=== PATIENT | male | born 1945 | race Caucasian/White ===

== ENCOUNTER 2019-03-07 14:45 | Inpatient (IN) ==
--- OUTSIDE RECORDS SUMMARY | 2019-03-07 14:48 | External Medical Summary | Continuity of Care Document ---
:1945 Author Name Nery Rizvi, Provider Address Unavailable Unavailable , Care Team Providers Name Role Phone Rosanna Rizvi, [email or web address] Unavailable Unavailable Unavailable Unavailable Unavailable Problems Diabetes (250.00) (E11.9) CHF (congestive heart failure) (428.0) (I50.9) Obesity (278.00) (E66.9) Hypertension (401.9) (I10) A-fib (427.31) (I48.91) CAD (coronary artery disease) (414.00) (I25.10) Dyslipidemia (272.4) (E78.5) Fatigue (780.79) (R53.83) Ischemic cardiomyopathy (414.8) (I25.5) Sleep apnea (780.57) (G47.30) Current every day smoker (305.1) (F17.200) Encounter for monitoring anti-arrhythmic therapy (V58.83) (Z 51.81) Current use of prison anticoagulation (V58.61) (Z79.01) Allergies and Adverse Reactions No Known Allergies (Allergy) Medications Atenolol 25 MG Oral Tablet; take 1/2 tablet by mouth once da pan Quantity: 90 Refills: 3 Aspirin 81 MG TABS; TAKE 1 TABLET DAILY. Refills: 0 Furosemide 40 MG Oral Tablet; TAKE 1 TABLET TWICE DAILY. Quantity: 30 Refills: 0 Ramipril 5 MG Oral Capsule; Take 1 capsule twice daily Refills: 0 Xarelto 20 MG Oral Tablet; TAKE 1 TABLET BY MOUTH DAILY Quantity: 30 Refills: 11 Sotalol HCl - 160 MG Oral Tablet; TAKE 1 TABLET TWICE DAILY. Refills: 0 Spironolactone 25 MG Oral Tablet; TAKE 1 TABLET BY MOUTH ONC E DAILY. Quantity: 30 Refills: 3 glipiZIDE 10 MG Oral Tablet; TAKE 1 TABLET TWICE DAILY. Refills: 0 Cinnamon 500 MG Oral Tablet; Take 2 tablets daily Refills: 0 Atorvastatin Calcium 40 MG Oral Tablet; TAKE 1 TABLET DAILY AT BEDTIME 90 Tablet Bottle Refills: 0 Acarbose 50 MG Oral Tablet; TAKE 1 TABLET 3 TIMES DAILY WITH MEALS. Refills: 0 Procedures Procedures not documented Immunizations Immunizations not documented Social History - Smoking Status Current every day smoker Plan of Treatment Planned Encounters Appointment; Gm Marte M.D. Start: 07-Aug-2019 11:15 Req uest Planned Observations Planned Goals not documented Results In-House EKG ([facility]) Total Laboratory: [facility] Component (Pending) 06-Feb-2019 9:40 In-House EKG Total Component [facility] Test Date: [id number] Name: ARMANDO FINK Detment: Room: Gender: Male [employer]s Receivable Specialist: KDunlapDOB: 1945 Requested By: Yesenia MarteOrder Number: [id number] Reading MD: Gm Marte MeasurementsIntervals [place] Rate: 56 P: -25PR: 178 QRS: 14QRSD: 86 T: 30QT: 427 QTc: 417 Interpretive StatementsSINUS BRADYCARDIA WITH SINUS ARRHYTHMIA versus premature ectopi c atrialbeatsLOW QRS VOLTAGE IN PRECORDIAL LEADS BORDERLINE ECGReviewed by Comed to ECG 08/06/2018 10:47:03Electronically Signed On 02-08-20 17:59:01 EDT by Gm Marte Vital Signs 07-Mar-2019 13:56 Systolic 108 mm[Hg] Comments: Location: RUE; Position: Sitting Diastolic 70 mm[Hg] Comments: Location: RUE; Position: Sitting BMI Calculated 35.78 kg/m2 Weight 271.1875 lb Heart Rate 60 /min Comments: Location: R Radial; BSA Calculated 2.45 m2 06-Feb-2019 9:29 Systolic 104 mm[Hg] Comments: Location: LUE; Position: Sitting Diastolic 64 mm[Hg] Comments: Location: LUE; Position: Sitting BMI Calculated 36.06 kg/m2 Weight 273.3125 lb Heart Rate 60 /min Comments: Location: L Radial; BSA Calculated 2.46 m2 Height 73 in Encounters Appointment; Nedra Cantrell PA-C 07-Mar-2019 14:00 Encounter Diagnosis: Problem not documented Appointment; Gm Marte M.D. 06-Feb-2019 9:45 Encounter Diagnosis: Problem not documented Appointment; Gm Marte M.D. 06-Aug-2018 10:15 Encounter Diagnosis: Problem not documented Appointment; Gm Marte M.D. 17-Jan-2018 10:30 Encounter Diagnosis: Problem not documented Appointment; Gm Marte M.D. 18-Jul-2017 9:30 Encounter Diagnosis: Problem not documented Appointment; Gm Marte M.D. 07-Aug-2019 11:15 Encounter Diagnosis: Problem not documented
[2019-03-07] MEDS ORDERED: MAGNESIUM SULFATE 1GM / D5W BAG IV ONE (15:06)
[2019-03-07] MEDS ORDERED: ALBUT/IPRATROP 3MG/0.5MG NEB 3 ML VIAL INH STA (15:11)
[2019-03-07] MEDS ORDERED: methylPREDNISolone 125 MG/2 ML VIAL IV STA (15:11)
[2019-03-07] MEDS: MAGNESIUM SULFATE / D5W 1 GM/100 ML BAG IV SCH ×2 (15:16→21:02)
[2019-03-07 15:32] LABS: Basophils # (auto) 0.03 K/uL (0-0.2); Basophils % (auto) 0.3 %; Eosinophils # (auto) 0.15 K/uL (0-0.5); Eosinophils % (auto) 1.4 %; Hematocrit (blood only) 56.7 % (42-52); Immature Granulocytes # (auto) 0.04 K/uL (0.00-0.02); Immature Granulocytes % (auto) 0.4 %; Lymphocytes # (auto) 1.21 K/uL (1.2-3.4); Mean Corpuscular Volume 97.3 fL (80-100); Mean Platelet Volume 11.5 fL (7.4-10.4); Monocytes # (auto) 1.72 K/uL (0.11-0.59); Monocytes % (auto) 15.6 %; Neutrophils # (auto) 7.89 K/uL (1.4-6.5); Neutrophils % (auto) 71.3 %; Platelet Count 182 K/uL (130-400); RDW Coefficient of Variation 14.9 % (11.5-14.5); RDW Standard Deviation 52.5 fL (36.4-46.3); Red Blood Count 5.83 M/uL (4.7-6.1); White Blood Count 11.04 K/uL (4.8-10.8)
--- NOTE | 2019-03-07 15:38 | XRay Report ---
XR chest 1V portable CLINICAL HISTORY: Dyspnea COMPARISON STUDY: No previous studies for comparison. FINDINGS: Lung volumes are normal. There is no pneumothorax or pleural effusion. Mild lower lung inte rstitial thickening is noted. No consolidation to suggest pneumonia. Mild cardiomegaly is noted. There is prominence of right media stinal contour. IMPRESSION: 1. Prominent right mediastinal contour, a nonspecific finding. A CT of the chest with contrast is rec ommended. 2. Lower lung interstitial thickening. No consolidation to suggest pneumonia. Electronically signed by: Marcus Ceballos M.D. 03/07/2019 3:37 PM
[2019-03-07 15:39] LABS: Albumin Level 3.5 gm/dl (3.4-5.0); Creatinine Clr Calc Pharmacy 57.4 ml/min; Est GFR (African American) 48.8; Est GFR (Non-African American) 42.1; Magnesium 2.5 mg/dl (1.8-2.4); Potassium 4.7 mmol/L (3.5-5.1)
[2019-03-07 15:44] LABS: Mean Corpuscular Hgb Conc 31.7 g/dL (32-36)
[2019-03-07 15:53] LABS: Oxygen Saturation VBG 85.1 %; pH VBG 7.25 (7.36-7.41)
[2019-03-07 15:57] LABS: Albumin Globulin Ratio 0.9 (0.9-2); Bilirubin,Total 0.9 mg/dl (0.2-1); Globulin 3.9 gm/dl (2.5-4.0); Total Protein 7.4 gm/dl (6.4-8.2); Troponin I 0.594 ng/ml (0-0.045)
[2019-03-07] MEDS ORDERED: ASPIRIN CHEW 324 MG PO STA (16:06)
--- NOTE | 2019-03-07 16:48 | Emergency Department Note ---
Entered by Prasanna Coley acting as a scribe for Vipin Gallardo MD History of Present Illness General Chief complaint: Shortness of Breath/Dyspnea Stated complaint: SHORTNESS OF BREATH Time Seen by Provider: 03/07/19 14:56 Source: patient History of Present Illness Onset (ago): month(s) 1 Location: chest (lungs) Pain Consistency: + other (persistent) Quality: + other (shortness of breath) Exacerbated By: + other (exertion) Associated symptoms: + cough and + other (leg swelling) The patient is a 73 year old white male with PMHx of COPD, A-fib on Sotalol and Xarelto, DM, HTN and HLD who presents to the Emergency Room with complaints of persistent shortness of breath for the past month worsening today. The patient reports that he sometimes becomes more short of breath with exertion. He reports a cough productive of clear/white sputum. He notes new leg swelling developing in the past few days, but he denies any calf pain or history of blood clots. He states that at home he does not use supplemental oxygen, CPAP, or BiPAP. He reports that he smokes cigarettes daily. He denies recent travel, recent antibiotic use, or history of cardiac stent placement. He notes that he sleeps lying flat on his side. Home Medications Home Medications Medication Instructions Recorded Confirmed Type acarbose 50 mg PO TID 03/07/19 03/07/19 History aspirin [Aspirin Low Dose] 81 mg PO DAILY 03/07/19 03/07/19 History atenolol 12.5 mg PO DAILY 03/07/19 03/07/19 History atorvastatin 40 mg PO HS 03/07/19 03/07/19 History cinnamon bark [Cinnamon] 1,000 mg PO DAILY 03/07/19 03/07/19 History furosemide 40 mg PO BID 03/07/19 03/07/19 History glipizide 10 mg PO BID 03/07/19 03/07/19 History ramipril 50 mg PO BID 03/07/19 03/07/19 History rivaroxaban [Xarelto] 20 mg PO DAILY 03/07/19 03/07/19 History sotalol 160 mg PO BID 03/07/19 03/07/19 History spironolactone 25 mg PO DAILY 03/07/19 03/07/19 History Allergies Allergy/AdvReac Type Severity Reaction Status Date / Time No Known Allergies Allergy Unverified 03/07/19 17:00 Past Med/Surg History Medical History HLD (hyperlipidemia) (Chronic) Hypertension (Chronic) Diabetes (Chronic) Atrial fibrillation (Chronic) COPD (chronic obstructive pulmonary disease) (Chronic) Family History Other Family history non-contributory Social History Preferred Language: Belgian Communication Ability: Effective Beliefs That Will Affect Care: None Current Living Situation: Spouse Feels Safe at Home: Yes Smoking Status: Heavy tobacco smoker Tobacco Type: cigarettes Second Hand Exposure: No Hx Alcohol Use: No Hx Substance Use: No Review of Systems See HPI for pertinent positives & negatives. and A total of 10 systems reviewed and were otherwise negative Physical Exam Vital Signs Vital Signs - 24 hr 03/07/19 14:46 03/07/19 14:57 03/07/19 15:01 Temperature 36.8 C Temperature Source Oral Sepsis Recent Fever Within 48 Hours No Sepsis Action Taken by Nursing No Action Required End-Tidal CO2 41 Pulse Rate 74 71 Pulse Rate from SpO2 Sensor 68 Pulse Rhythm Regular Pulse Strength Normal Respiratory Rate 30 H Respiratory Effort / Characteristics Non-Labored Spontaneous Accessory Muscle Use Respiratory Depth Normal Blood Pressure 124/66 135/85 Blood Pressure Mean 85 101 Blood Pressure Position Sitting Pulse Oximetry 66 L 87 L Oxygen Delivery Method Room Air Oxymask Oxymask Oxygen Flow Rate 13 2 Fraction of Inspired Oxygen 03/07/19 15:15 03/07/19 15:30 03/07/19 15:39 Temperature Temperature Source Sepsis Recent Fever Within 48 Hours Sepsis Action Taken by Nursing End-Tidal CO2 39 42 54 Pulse Rate 70 70 70 Pulse Rate from SpO2 Sensor 70 65 69 Pulse Rhythm Pulse Strength Respiratory Rate Respiratory Effort / Characteristics Respiratory Depth Blood Pressure 128/71 Blood Pressure Mean 90 Blood Pressure Position Pulse Oximetry 90 94 94 Oxygen Delivery Method Nebulizer Nebulizer Nebulizer Oxygen Flow Rate Fraction of Inspired Oxygen 03/07/19 15:42 03/07/19 16:01 03/07/19 16:30 Temperature Temperature Source Sepsis Recent Fever Within 48 Hours Sepsis Action Taken by Nursing End-Tidal CO2 41 40 Pulse Rate 66 70 Pulse Rate from SpO2 Sensor 61 59 L Pulse Rhythm Pulse Strength Respiratory Rate Respiratory Effort / Characteristics Respiratory Depth Blood Pressure 130/61 Blood Pressure Mean 84 Blood Pressure Position Pulse Oximetry 94 93 Oxygen Delivery Method Nasal Cannula Nebulizer Oxymask Oxygen Flow Rate 2 6 Fraction of Inspired Oxygen 87 03/07/19 16:31 03/07/19 17:29 03/07/19 17:31 Temperature Temperature Source Sepsis Recent Fever Within 48 Hours Sepsis Action Taken by Nursing End-Tidal CO2 43 49 37 Pulse Rate 65 63 66 Pulse Rate from SpO2 Sensor 64 63 65 Pulse Rhythm Pulse Strength Respiratory Rate Respiratory Effort / Characteristics Respiratory Depth Blood Pressure 132/70 102/55 L 82/67 L Blood Pressure Mean 90 70 72 Blood Pressure Position Pulse Oximetry 94 93 91 Oxygen Delivery Method Oxymask Oxymask Oxymask Oxygen Flow Rate 6 6 6 Fraction of Inspired Oxygen GENERAL: Well nourished, in mild distress, non-toxic. EYE EXAM: Normal conjunctiva. PERRL, no anisocoria and EOM's grossly intact w/o pain. OROPHARYNX: Moist mucous membranes. Grossly normal dentition. NECK: Supple, no nuchal rigidity, no adenopathy, non-tender. No signs of meningismus. LUNGS: Decreased breath sounds bilaterally with scant wheezing throughout. Normal chest wall mechanics. HEART: NSR, no MRG. ABDOMEN: Abdomen soft, non-tender, normo-active bowel sounds, no masses, no rebound or guarding. BACK: No CVA TTP. SKIN: No rashes and no bruising. UPPER EXTREMITIES: Upper extremities are grossly normal. LOWER EXTREMITIES: 2 to 3+ bilateral edema, right greater than left. No calf pa in. NEURO EXAM: A&O x3, cranial nerves II-XII grossly intact, normal speech, moves all 4 extremities on command w/o issue. Course 1457: The patient was evaluated in room B1. A complete history and physical examination were performed. Bedside ultrasound was performed and interpreted by me. Apical and parasternal views were difficult. Subxiphoid view showed no evidence of effusion. RV does not appear enlarged compared to the left. No obvious septal bowing. 1617: The patient is refusing BiPAP. After discussing risks and benefits with him, he stated that he still does not want BiPAP. He also does not want to be intubated or have CPR. 1625: Dr. Grace [facility] Hospitalist was notified of the patient. The patient will be reevaluated for hospitalization. 1710: I discussed the patient again with Dr. Grace. Administered Medications Albuterol (Duoneb) 3 ml NEB QIDR JABARI Stop: 04/06/19 19:59 Last Admin: 03/08/19 11:22 Dose: 3 ml Documented by: [id number] Admin: 03/08/19 07:02 Dose: 3 ml Documented by: [id number] Admin: 03/07/19 19:34 Dose: 3 ml Documented by: [id number] Aspirin (Ecotrin Ectab) 81 mg PO DAILY JABARI Stop: 04/07/19 08:59 Last Admin: 03/08/19 08:29 Dose: 81 mg Documented by: [id number] Atenolol (Tenormin) 12.5 mg PO DAILY JABARI Stop: 04/07/19 08:59 Last Admin: 03/08/19 08:30 Dose: 12.5 mg Documented by: [id number] Atorvastatin Calcium (Lipitor) 40 mg PO HS JABARI Stop: 04/06/19 20:59 Last Admin: 03/07/19 21:01 Dose: Not Given Documented by: [id number] Furosemide (Lasix) 40 mg PO BID17 JABARI Stop: 04/07/19 10:29 Last Admin: 03/08/19 11:32 Dose: 40 mg Documented by: [id number] Methylprednisolone 60 mg/ (Syringe) 0.96 mls @ 1.5 mls/min IV Q6H JABARI Stop: 04/06/19 18:59 Last Admin: 03/08/19 08:27 Dose: 1.5 mls/min Documented by: [id number] Admin: 03/08/19 00:48 Dose: 1.5 mls/min Documented by: [id number] Admin: 03/07/19 19:59 Dose: 1.5 mls/min Documented by: [id number] Insulin Aspart (Novolog Flexpen) 0 units SC ACHS JABARI Stop: 04/07/19 07:29 Last Admin: 03/08/19 08:33 Dose: 7 units Documented by: [id number] Cosigned by: [id number] Rivaroxaban (Xarelto) 20 mg PO DAILY JABARI Stop: 04/07/19 08:59 Last Admin: 03/08/19 08:31 Dose: 20 mg Documented by: [id number] Sotalol HCl (Betapace) 160 mg PO BID JABARI Stop: 04/06/19 20:59 Last Admin: 03/08/19 08:29 Dose: 160 mg Documented by: [id number] Admin: 03/07/19 21:01 Dose: Not Given Documented by: [id number] Discontinued Medications Albuterol (Duoneb) 12 ml INH ONE STA Stop: 03/07/19 15:12 Last Admin: 03/07/19 17:33 Dose: Not Given Documented by: [id number] Aspirin (Aspirin) 324 mg PO NOW STA Stop: 03/07/19 16:07 Last Admin: 03/07/19 17:33 Dose: 324 mg Documented by: [id number] Magnesium Sulfate/Dextrose (Magnesium Sulfate / D5w) 1 gm in 100 mls @ 100 mls/hr IV Q1H JABARI Stop: 03/07/19 17:14 Last Admin: 03/07/19 21:02 Dose: Not Given Documented by: [id number] Admin: 03/07/19 15:16 Dose: Not Given Documented by: [id number] Sodium Chloride (Nss 1000ml) 250 mls @ 999 mls/hr IV .Q16M ONE Stop: 03/07/19 18:00 Last Infusion: 03/07/19 18:12 Dose: 0 mls/hr Documented by: [id number] Admin: 03/07/19 17:47 Dose: 999 mls/hr Documented by: [id number] Sodium Chloride (Nss 1000ml) 250 mls @ 999 mls/hr IV .Q16M ONE Stop: 03/07/19 18:05 Last Admin: 03/07/19 18:01 Dose: Not Given Documented by: [id number] Sodium Chloride (Nss 1000ml) 1,000 mls @ 80 mls/hr IV .[id number] JABARI Stop: 04/06/19 18:14 Last Admin: 03/07/19 20:00 Dose: 80 mls/hr Documented by: [id number] Azithromycin 500 mg/ Dextrose 255 mls @ 125 mls/hr IV Q24H JABARI Stop: 03/14/19 19:59 Last Infusion: 03/07/19 23:15 Dose: 0 mls/hr Documented by: [id number] Admin: 03/07/19 19:59 Dose: 125 mls/hr Documented by: [id number] Ioversol (Optiray 320 125ml) 83 ml IV ONCE PRN PRN Reason: Interaction Checking Stop: 03/11/19 17:19 Last Admin: 03/07/19 17:20 Dose: 83 ml Documented by: [id number] Magnesium Sulfate/Dextrose (Magnesium Sulfate / D5w) Confirm Administered Dose 2 gm IV .STK-MED ONE Stop: 03/07/19 15:07 Last Admin: 03/07/19 15:08 Dose: 2 gm Documented by: [id number] Methylprednisolone (Solumedrol) 125 mg IV NOW STA Stop: 03/07/19 15:12 Last Admin: 03/07/19 15:34 Dose: 125 mg Documented by: [id number] Perflutren Lipid Microsphere (Definity) 2 ml IV ONCE ONE Stop: 03/08/19 07:11 Last Admin: 03/08/19 07:11 Dose: 2 ml Documented by: [id number] Medical Decision Making Medical Records Attestation: I reviewed the patient's medical records. Home Medications Current Medication List: was personally reviewed by me Laboratory Data Attestation: I reviewed the patient's lab results. Result diagrams: 03/08/19 06:25 03/08/19 06:25 Lab Results 03/07/19 03/07/19 03/07/19 Range/Units 14:55 14:55 14:55 WBC 11.04 H (4.8-10.8) K/uL RBC 5.83 (4.7-6.1) M/uL Hgb 18.0 (14.0-18.0) g/dL Hct 56.7 H (42-52) % MCV 97.3 (80-100) fL MCH 30.9 (25-34) pg MCHC 31.7 L (32-36) g/dL RDW Std Deviation 52.5 H (36.4-46.3) fL RDW Coeff of Conrad 14.9 H (11.5-14.5) % Plt Count 182 (130-400) K/uL MPV 11.5 H (7.4-10.4) fL Immature Gran % (Auto) 0.4 % Neut % (Auto) 71.3 % Lymph % (Auto) 11.0 % Toombs % (Auto) 15.6 % Eos % (Auto) 1.4 % Baso % (Auto) 0.3 % Immature Gran # (Auto) 0.04 H (0.00-0.02) K/uL Neut # (Auto) 7.89 H (1.4-6.5) K/uL Lymph # (Auto) 1.21 (1.2-3.4) K/uL Toombs # (Auto) 1.72 H (0.11-0.59) K/uL Eos # (Auto) 0.15 (0-0.5) K/uL Baso # (Auto) 0.03 (0-0.2) K/uL PT Cancelled INR Cancelled APTT Cancelled PTT Ratio Cancelled VBG pH (7.36-7.41) VBG pCO2 (38-50) mmHg VBG pO2 mmHg VBG HCO3 mmol/L VBG O2 Saturation % VBG Base Excess mEq/L Barometric Pressure mm/Hg Sodium 135 L (136-145) mmol/L Potassium 4.7 (3.5-5.1) mmol/L Chloride 94 L (98-107) mmol/L Carbon Dioxide 36 H (21-32) mmol/L Anion Gap 5.0 (3-11) BUN 37 H (7-18) mg/dl Creatinine 1.62 H (0.6-1.4) mg/dl Est Cr Clr Drug Dosing 57.4 ml/min Est GFR ( Amer) 48.8 Est GFR (Non-Af Amer) 42.1 BUN/Creatinine Ratio 23.0 H (10-20) Glucose 140 H (70-99) mg/dl Calcium 9.0 (8.5-10.1) mg/dl Magnesium 2.5 H (1.8-2.4) mg/dl Total Bilirubin 0.9 (0.2-1) mg/dl AST 15 (15-37) U/L ALT 17 (12-78) U/L Alkaline Phosphatase 98 (45-117) U/L Troponin I 0.594 H* (0-0.045) ng/ml NT-Pro-B Natriuret Pep 2693 H (0-900) pg/ml Total Protein 7.4 (6.4-8.2) gm/dl Albumin 3.5 (3.4-5.0) gm/dl Globulin 3.9 (2.5-4.0) gm/dl Albumin/Globulin Ratio 0.9 (0.9-2) 03/07/19 03/07/19 Range/Units 15:30 16:26 WBC (4.8-10.8) K/uL RBC (4.7-6.1) M/uL Hgb (14.0-18.0) g/dL Hct (42-52) % MCV (80-100) fL MCH (25-34) pg MCHC (32-36) g/dL RDW Std Deviation (36.4-46.3) fL RDW Coeff of Conrad (11.5-14.5) % Plt Count (130-400) K/uL MPV (7.4-10.4) fL Immature Gran % (Auto) % Neut % (Auto) % Lymph % (Auto) % Toombs % (Auto) % Eos % (Auto) % Baso % (Auto) % Immature Gran # (Auto) (0.00-0.02) K/uL Neut # (Auto) (1.4-6.5) K/uL Lymph # (Auto) (1.2-3.4) K/uL Toombs # (Auto) (0.11-0.59) K/uL Eos # (Auto) (0-0.5) K/uL Baso # (Auto) (0-0.2) K/uL PT 10.9 INR 1.1 APTT 28.3 PTT Ratio 1.0 VBG pH 7.25 L (7.36-7.41) VBG pCO2 85 H (38-50) mmHg VBG pO2 52 mmHg VBG HCO3 36 mmol/L VBG O2 Saturation 85.1 % VBG Base Excess 5.0 mEq/L Barometric Pressure 735.6 mm/Hg Sodium (136-145) mmol/L Potassium (3.5-5.1) mmol/L Chloride (98-107) mmol/L Carbon Dioxide (21-32) mmol/L Anion Gap (3-11) BUN (7-18) mg/dl Creatinine (0.6-1.4) mg/dl Est Cr Clr Drug Dosing ml/min Est GFR ( Amer) Est GFR (Non-Af Amer) BUN/Creatinine Ratio (10-20) Glucose (70-99) mg/dl Calcium (8.5-10.1) mg/dl Magnesium (1.8-2.4) mg/dl Total Bilirubin (0.2-1) mg/dl AST (15-37) U/L ALT (12-78) U/L Alkaline Phosphatase (45-117) U/L Troponin I (0-0.045) ng/ml NT-Pro-B Natriuret Pep (0-900) pg/ml Total Protein (6.4-8.2) gm/dl Albumin (3.4-5.0) gm/dl Globulin (2.5-4.0) gm/dl Albumin/Globulin Ratio (0.9-2) Imaging Data Radiologist's Impression: Radiology results as stated below per my review and the radiologist's interpretation: XR chest 1V portable CLINICAL HISTORY: Dyspnea COMPARISON STUDY: No previous studies for comparison. FINDINGS: Lung volumes are normal. There is no pneumothorax or pleural effusion. Mild lower lung interstitial thickening is noted. No consolidation to suggest pneumonia. Mild cardiomegaly is noted. There is prominence of right mediastinal contour. IMPRESSION: 1. Prominent right mediastinal contour, a nonspecific finding. A CT of the chest with contrast is recommended. 2. Lower lung interstitial thickening. No consolidation to suggest pneumonia. Electronically signed by: Marcus Ceballos M.D. 03/07/2019 3:[address] ANGIOGRAPHY OF THE CHEST, PULMONARY EMBOLUS PROTOCOL CLINICAL HISTORY: Severe shortness of breath. COMPARISON STUDY: Chest radiograph performed earlier today. TECHNIQUE: Following IV administration of 83 mL of Optiray-320, helical axial images of the chest were obtained utilizing the pulmonary embolus protocol. Maximal intensity projections and sagittal and coronal reformats were viewed on an independent 3D workstation. IV contrast was administered without complication. Automated exposure control was utilized for the study. A dose lowering technique was utilized adhering to the principles of ALARA. CT DOSE: 723.68 mGy.cm FINDINGS: No pulmonary emboli are identified. There is no thoracic aortic dissection. The prominent right mediastinal contour shown on chest radiograph performed earlier today is due to normal structures. The heart is moderately enlarged. There is no pericardial effusion. There is moderate dilatation of the central pulmonary arteries. No enlarged thoracic lymph nodes are present. There is moderate upper lobe predominant emphysema. Mild amount of mucus within the proximal left mainstem bronchus is noted. There is mild bronchial wall thickening. No consolidation is noted. Groundglass opacities reflect atelectasis. Bony thorax and upper abdomen are unremarkable. IMPRESSION: 1. No pulmonary emboli identified. 2. Moderate dilatation of the central pulmonary arteries which raises the possibility of pulmonary arterial hypertension. 3. Moderate cardiomegaly. 4. Mild emphysema. 5. No consolidation to suggest pneumonia. Electronically signed by: Marcus Ceballos M.D. 03/07/2019 5:30 PM ECG Data Attestation: I personally reviewed and interpreted this ECG as follows: Indication: SOB/dyspnea Rate (beats per minute): 71 Rhythm: sinus rhythm Findings: + other (normal intervals, normal axis, no STS changes) and + T-wave inversion (anterior) Blood Pressure Blood Pressure Findings: Normal blood pressure Blood Pressure Disposition: did not require urgent referral MDM Narrative Ancillary records reviewed/Prior records reviewed. Triage nursing summary reviewed. The patient is a 73 year old white male with PMHx of COPD, A-fib on Sotalol and Xarelto, DM, HTN and HLD who presents to the Emergency Room with complaints of persistent shortness of breath for the past month worsening today. Differential diagnosis includes: infections, reactive airway disease, pneumonia, pneumothorax, COPD, CHF, cardiac ischemia, pulmonary embolism, musculoskeletal, gastrointestinal, as well as others were entertained. Patient was seen and evaluated the bedside. The patient had been brought back to 1 of our critical care rooms given the concern for shortness of breath and hypoxia with an O2 sat in the 60s. Patient does have a known history of COPD. The patient does use inhalers. Patient currently smokes. Patient was counseled on smoking station. Patient had initially been put on an oxygen mask and was slowly titrated back down to the low 90s given the concern for initial hypoxia. The patient does have some shallow breath sounds with scant wheezes. The patient did have blood work completed. The patient reportedly does follow with Dr. swartz and apparently did have a recent echocardiogram in January. Patient has no prior history of heart attack. Patient does not have any stents or bypass. Patient blood work does show mild white count of 11. The patient's blood work does show an elevated PCO2 with a lower pH is 725. The patient does have an elevated troponin and BNP. The patient does not complain of any chest pains and no evidence of ST depressions or elevations on the patient's there were no prior EKGs to compare to. The patient does have subtle T wave inversions. Will defer heparin at this time the patient was ordered aspirin. Given the patient's hypercarbia I did order BiPAP the patient refused. After discussion about the risks and benefits of BiPAP and the possible need for intubation the patient still declined any respiratory intervention. The patient states he is DNR/DNI. The patient also does not want BiPAP or CPAP. I did state the patient that if he changes his mind he may say so. The patient is not acutely altered to the point where he cannot make his own decisions in my opinion. The patient is awake alert and follows commands without issue. I did speak the on-call hospitalist who agreed to further evaluate treat the patient. Patient was admitted to the medicine service. Impression & Plan COPD exacerbation, Respiratory failure with hypoxia and hypercapnia, Encounter for smoking cessation counseling Critical Care Time Critical Care Time: Yes Total Critical Care Time: 77 I have personally spent 77 minutes of critical care time in the direct management of this patient. This includes bedside care, interpretation of diagnostic studies, and testing, discussion with consultants, patient, and family members, and other required patient management activities. This 77 minutes is in excess of all separately billable procedures. Discharge Plan Visit Data *Final* Discharge Date/Time: 03/07/19 18:11 Chief Complaint: Shortness of Breath/Dyspnea Stated Complaint: SHORTNESS OF BREATH ED Provider: Vipin Gallardo Discharge Problem: COPD exacerbation, Respiratory failure with hypoxia and hypercapnia, Encounter for smoking cessation counseling Patient Disposition: Admitted As Inpatient Discharge Instructions Interventions: ED Discharge Assessment Last Done: 03/07/19 18:11 Discharge Problem: Respiratory failure with hypoxia and hypercapnia Qualifiers: Chronicity: unspecified Qualified Code(s): J96.91 - Respiratory failure, unspecified with hypoxia The scribe's documentation has been prepared under my direction and personally reviewed by me in its entirety. I confirm that the note above accurately reflects all work, treatment, procedures, and medical decision making performed by me.
[2019-03-07 16:50] LABS: INR 1.1 (0.9-1.1); Partial Thromboplastin Time 28.3 Seconds (21.0-31.0); Prothrombin Time 10.9 Seconds (9.0-12.0)
[2019-03-07] MEDS ORDERED: OPTIRAY 320 125ml IV PRN (17:20)
--- NOTE | 2019-03-07 17:31 | CT Scan Report ---
CT ANGIOGRAPHY OF THE CHEST, PULMONARY EMBOLUS PROTOCOL CLINICAL HISTORY: Severe shortness of breath. COMPARISON STUDY: Chest radiograph performed earlier today. TECHNIQUE: Following IV administration of 83 mL of Optiray-320, helical axial images of the chest wer e obtained utilizing the pulmonary embolus protocol. Maximal intensity projections and sagittal and coronal reformats were viewed on an independent 3D workstation. IV contrast was administered without complication. Automated exposure control was utilized for the study. A dose lowering technique was utilized adhering to the principles of ALARA. CT DOSE: 723.68 mGy.cm FINDINGS: No pulmonary emboli are identified. There is no thoracic aortic dissection. The prominent right mediastinal contour shown on chest radiograph performed earlier today is due to normal structur es. The heart is moderately enlarged. There is no pericardial effusion. There is moderate dilatation of the central pulmonary arteries. No enlarged thoracic lymph nodes are present. There is moderate up per lobe predominant emphysema. Mild amount of mucus within the proximal left mainstem bronchus is no darya. There is mild bronchial wall thickening. No consolidation is noted. Groundglass opacities reflec t atelectasis. Bony thorax and upper abdomen are unremarkable. IMPRESSION: 1. No pulmonary emboli identified. 2. Moderate dilatation of the central pulmonary arteries which raises the possibility of pulmonary ar terial hypertension. 3. Moderate cardiomegaly. 4. Mild emphysema. 5. No consolidation to suggest pneumonia. Electronically signed by: Marcus Ceballos M.D. 03/07/2019 5:30 PM
[2019-03-07] MEDS ORDERED: SODIUM CHLORIDE 0.9% 1000ML 250 ML IV ONE ×2 (17:45→17:50)
--- NOTE | 2019-03-07 18:08 | History & Physical Report ---
Date of Service March 07, 2019 Assessment & Plan (1) COPD exacerbation: 73 y/o M Hx CHF, CAD, COPD, PAF, HTN, HLD, DM II, obese, smoker. Presents from his cardiologists office where he was being assessed for shortness of breath. He was notably hypoxic and tachypneic and was redirected to the ER therefore. He denies CP a productive cough or fevers. On arrival to the ER a VBG demonstrated hypercarbic respiratory failure. Additional labs are notable for renal insufficiency which may be chronic, polycythemia and an elevated troponin. He was sent for a CTA of the chest which was essentially negative for acute findings. He resonded well to nebulizers, steroids and 02. He did however become hypotensive while in the ER, likely owing to hypovolemia/dehydration. This resolved with a fluid bolus. 1) COPD exacerbation - he has given strict instructions that he does not wish to be treated with CPAP/BiPAP. Provided with an 02 protocol, abx, steroids, scheduled nebs. 2) CHF - the pt is clinically hypovolemic on admission - he is receiving IVF so volume status bears monitoring. Can evaluate for resumption of diuretics AM. 3) AF - sinus on admission - cont Sotalol, Atenolol, Xarelto 4) HTN, HLD - can resume Atorvastatin - repeat BMP Am prior to resuming Ramipril. 5) DM II - SS 6) CAD - trop is elevated - an echo is pending to assess for corresponding WMAs. This is more likely due to hypoxia/demand. Will cont ASA, b wilfred, statin. Trend trops. He is fully anicoagulated. DNR/DNI - confirmed with pt/family Total time for this admit including review of labs, meds, imaging, records - discussion with pt and ER attending - 38 min History of Present Illness Chief Complaint: Dyspnea Primary Care Provider: Bill Romero PA-C 73 y/o M Hx CHF, CAD, COPD, PAF, HTN, HLD, DM II, obese, smoker. Presents from his cardiologists office where he was being assessed for shortness of breath. He was notably hypoxic and tachypneic and was redirected to the ER therefore. He denies CP a productive cough or fevers. On arrival to the ER a VBG demonstrated hypercarbic respiratory failure. Additional labs are notable for renal insufficiency which may be chronic, polycythemia and an elevated troponin. He was sent for a CTA of the chest which was essentially negative for acute findings. He responded well to nebulizers, steroids and 02. He did however become hypotensive while in the ER, likely owing to hypovolemia/dehydration. The hypotension then resolved with a fluid bolus. PMH: 1) CHF - unspecified 2) CAD - PA 2014 - no stents 3) COPD 4) HTN 5) HLD 6) Obese 7) PAF - Xarelto 8) DM II Surgical: No surgical history Social: Smokes one pack daily, does not drink, retired from manual labor. Family: Noncontributory Allergies Allergy/AdvReac Type Severity Reaction Status Date / Time No Known Allergies Allergy Unverified 03/07/19 17:00 Home Medications Home Medications Medication Instructions Recorded Confirmed Type acarbose 50 mg PO TID 03/07/19 03/07/19 History aspirin [Aspirin Low Dose] 81 mg PO DAILY 03/07/19 03/07/19 History atenolol 12.5 mg PO DAILY 03/07/19 03/07/19 History atorvastatin 40 mg PO HS 03/07/19 03/07/19 History cinnamon bark [Cinnamon] 1,000 mg PO DAILY 03/07/19 03/07/19 History furosemide 40 mg PO BID 03/07/19 03/07/19 History glipizide 10 mg PO BID 03/07/19 03/07/19 History ramipril 50 mg PO BID 03/07/19 03/07/19 History rivaroxaban [Xarelto] 20 mg PO DAILY 03/07/19 03/07/19 History sotalol 160 mg PO BID 03/07/19 03/07/19 History spironolactone 25 mg PO DAILY 03/07/19 03/07/19 History Past Med/Surg History Medical History HLD (hyperlipidemia) (Chronic) Hypertension (Chronic) Diabetes (Chronic) Atrial fibrillation (Chronic) COPD (chronic obstructive pulmonary disease) (Chronic) Family History Other Family history non-contributory Social History Preferred Language: Slovak Feels Safe at Home: Yes Smoking Status: Current every day smoker Review of Systems Review of Systems: Gen: Denies fevers, night sweats, rigors, fatigue, malaise, weight loss/gain ENT: Denies congestion, throat pain, hearing loss Eyes: Denies acute visual changes CV: Denies CP, palpitations Pulmonary: Progressive SOB GI: Denies N/V, diarrhea, constipation Neuro: Denies acute or unilateral weakness, acute gait impairment, headache or acute visual changes Musculoskeletal: Denies joint pain, inflammation Endocrine: Reports oliguria for 1-2 days Skin: Denies acute rashes or ulcers Physical Exam Physical Exam: General: Obese, elderly M, somnolent but O x 3 when awake, no distress ENT: No erythema or exudates, no thrush Eyes: ERIC, EOMI Head and neck: Normocephalic, atraumatic, neck is supple. Chest/heart: Nontender, S1,2, RRR, no murmurs, no gallops Lungs: Very poor air movement - cannot discern wheezing/crackles Abdomen: Nontender, nondistended, BS+ Neuro: AAO x 3, speech is clear, no unilateral weakness or loss of sensation, coordination intact Musculoskeletal: No joint inflammation, muscle tenderness, FROM Skin: No acute rashes or ulcers Extremities: No clubbing, cyanosis. + edema Results & Data Vital Signs (Past 12 Hours) Vital Signs Temp Pulse Resp BP Pulse Ox 03/07/19 17:31 66 82/67 L 91 03/07/19 17:29 63 102/55 L 93 03/07/19 16:31 65 132/70 94 03/07/19 16:30 70 93 03/07/19 16:01 66 130/61 94 03/07/19 15:39 70 128/71 94 03/07/19 15:30 70 94 03/07/19 15:15 70 90 03/07/19 15:01 71 135/85 87 L 03/07/19 14:46 98.2 F 74 30 H 124/66 66 L PG Care Time/CCT Total # of Minutes Spent Total Time Spent with Patient: Total time spent is greater than 50% in coordination of care (as documented) at patient's floor/unit and/or counseling patient:
[2019-03-07] MEDS ORDERED: SODIUM CHLORIDE 0.9% 1000ML 1,000 ML IV SCH (18:15)
[2019-03-07] MEDS ORDERED: ZOLPIDEM TARTRATE 5 MG TAB PO PRN (19:05)
[2019-03-07] MEDS ORDERED: ALUMINUM/MAGNESIUM SUSP 30 ML UDC PO PRN (19:05)
[2019-03-07] MEDS ORDERED: MoRPHine SULFATE 2 MG/ML CARP IV PRN (19:05)
[2019-03-07] MEDS ORDERED: POLYETHYLENE (MIRALAX) 17 GM PACK PO PRN (19:05)
[2019-03-07] MEDS ORDERED: MAGNESIUM HYDROXIDE SUSP 30 ML UDC PO PRN (19:05)
[2019-03-07] MEDS ORDERED: ALBUTEROL 0.083% NEBU SOLN 3 ML VIAL NEB PRN (19:05)
[2019-03-07] MEDS: ALBUT/IPRATROP 3MG/0.5MG NEB 3 ML VIAL NEB SCH (19:34)
[2019-03-07] MEDS: methylPREDNISolone 60 MG in SYRINGE 0 ML IV SCH (19:59)
[2019-03-07] MEDS ORDERED: AZITHROMYCIN 500 MG in DEXTROSE 5% 250 ML IV SCH (20:00)
[2019-03-07] MEDS: ATORVASTATIN 40 MG TAB PO SCH (21:01)
[2019-03-07] MEDS: SOTALOL HCL 80 MG TAB PO SCH (21:01)
[2019-03-07] MEDS ORDERED: HALOPERIDOL LACTATE 5 MG/ML 1 ML VIAL IM PRN (22:38)
[2019-03-07] MEDS ORDERED: Nursing to Pharmacy Communication ONE (23:16)
[2019-03-08] MEDS: methylPREDNISolone 60 MG in SYRINGE 0 ML IV SCH ×4 (00:48→20:22)
[2019-03-08] MEDS ORDERED: GLUCOSE 40% GEL 15 GM TUBE PO PRN (01:45)
[2019-03-08] MEDS ORDERED: GLUCOSE 10 TABS/TUBE PO PRN (01:45)
[2019-03-08] MEDS ORDERED: GLUCAGON FOR INJ 1 MG VIAL SQ PRN (01:45)
[2019-03-08] MEDS ORDERED: DEXTROSE 50% 50 ML SYRINGE IV PRN (01:45)
[2019-03-08] MEDS ORDERED: CARBOHYDRATES FOR HYPOGLYCEMIA PO PRN (01:45)
[2019-03-08 06:47] LABS: Base Excess ABG 3.8 mEq/L (-9-1.8); HCO3 ABG 33 mmol/L (19-24); Oxygen Saturation ABG 94.1 % (90-95); PCO2 ABG 71 mmHg (35-46); PO2 ABG 74 mm/Hg (80-95); pH ABG 7.29 (7.35-7.45)
[2019-03-08 06:48] LABS: Hematocrit (blood only) 53.1 % (42-52); Immature Granulocytes # (auto) 0.02 K/uL (0.00-0.02); Immature Granulocytes % (auto) 0.3 %; Lymphocytes # (auto) 0.34 K/uL (1.2-3.4); Lymphocytes % (auto) 4.4 %; Mean Corpuscular Volume 96.7 fL (80-100); Mean Platelet Volume 11.2 fL (7.4-10.4); Monocytes # (auto) 0.13 K/uL (0.11-0.59); Monocytes % (auto) 1.7 %; Neutrophils % (auto) 93.6 %; Platelet Count 169 K/uL (130-400); RDW Coefficient of Variation 14.7 % (11.5-14.5); RDW Standard Deviation 52.2 fL (36.4-46.3); Red Blood Count 5.49 M/uL (4.7-6.1); White Blood Count 7.69 K/uL (4.8-10.8)
[2019-03-08 06:49] LABS: Allen Test Pos (Pos)
[2019-03-08] MEDS: ALBUT/IPRATROP 3MG/0.5MG NEB 3 ML VIAL NEB SCH ×4 (07:02→19:26)
[2019-03-08] MEDS ORDERED: PERFLUTREN LIPID MICROSPHERE (DEFINITY) IV ONE (07:10)
[2019-03-08 07:15] LABS: BUN Creatinine Ratio 27.3 (10-20); Calcium 8.3 mg/dl (8.5-10.1); Est GFR (African American) 60.8; Est GFR (Non-African American) 52.4
[2019-03-08] MEDS: SOTALOL HCL 80 MG TAB PO SCH ×2 (08:29→21:23)
[2019-03-08] MEDS: ASPIRIN 81 MG ECTAB PO SCH (08:29)
[2019-03-08] MEDS: ATENOLOL 25 MG TABLET PO SCH (08:30)
[2019-03-08] MEDS: RIVAROXABAN 20 MG TAB PO SCH (08:31)
[2019-03-08] MEDS: INSULIN ASPART 100 UNITS/ML 3 ML PEN SC SCH ×4 (08:33→20:36)
[2019-03-08] MEDS: FUROSEMIDE 40 MG TAB PO SCH ×2 (11:32→17:04)
[2019-03-08 11:58] LABS: Base Excess ABG 3.7 mEq/L (-9-1.8); HCO3 ABG 33 mmol/L (19-24); Oxygen Saturation ABG 89.3 % (90-95); PCO2 ABG 69 mmHg (35-46); PO2 ABG 56 mm/Hg (80-95)
[2019-03-08 11:59] LABS: Allen Test Pos (Pos)
--- NOTE | 2019-03-08 12:56 | Hospitalist Progress Note ---
Date of Service March 08, 2019 Assessment & Plan (1) Heart failure with preserved ejection fraction: edema in legs, pitting resume Lasix 40mg BID echo today shows grade I diastolic dysfunction, normal EF likely has some degree of pulmonary HTN given long standing lung disease (2) Exertional angina: admits to chest pain and pressure on exertion improves with rest likely with CAD given his h/o smoking and diabetes troponin elevated but all consistent at 0.4 and 0.5 would not consider this an NSTEMI as he has no active chest pain consult cardiology no wall motion changes seen on echo would likely benefit from stress testing but breathing would need to be improved perhaps nuclear stress would be option (3) Respiratory failure with hypoxia and hypercapnia: likely some degree of chronic hypoxia and chronic hypercapnia as well but no testing done in the past patient is always short of breath, presented with CO2 in the 70's with pH 7.3 likely has chronic CO2 level in the mid 50's or 60 oxygen level is stable on 4L, 90% d/w patient and family and RN that goal saturations for him are 88-90% given the hypercapnia he was compliant with BIPAP last night for a few hours discussed using it again this evening, he will likely not use it (4) COPD exacerbation: continue on Solu Medrol q6 for today likely taper back tomorrow continue with Duoneb QID no need for antibiotics as no signs of increased purulence will need to be on Spiriva and Advair prior to discharge would benefit from PFT testing as outpatient (5) Hypertension: BP low normal continue home regimen with Atenolol Lasix resumed (6) Diabetes: diabetic diet and Novolog SS monitor for hypoglycemia (7) Atrial fibrillation: sinus rhythm on the monitor continue on Sotalol and Atenolol anticoagulated on Xarelto (8) CKD (chronic kidney disease), stage III: Cr is stable between 1.3 and 1.6 repeat tomorrow (9) Encounter for smoking cessation counseling: patient has been smoking since age 12 said that he is not interested in quiting told him that if he quits he could preserve what lung function he still has he said "everyone dies eventually, I'm not gonna quit" (10) HLD (hyperlipidemia): continue statin therapy Subjective patient reports he is feeling so much better today, breathing easier per patient's son, they were able to keep the BIPAP on him from midnight to 6am reviewed his ABG this morning, despite having the BIPAP his CO2 was still in 70's he is refusing to put the CPAP back on his mental state is much better this morning, no confusion or agitation, d/w psychiatry, will cancel consult reviewed chart since admission long discussion with patient and his family at the bedside he says that he has been smoking since age 12, at his peak he smoked 2 ppd, currently still smokes 10-15 cigarrettes a day he has no plans to quit he knows that he has COPD, but he is not on any maintenance inhalers at home he coughs every day, usually clear/yellow but occasionally brown sputum, no blood he has been experiencing edema in the legs for a few weeks, goes up to the knee he will experience exertional chest pain/pressure, especially when walking to get the mail reports it is a 100 yard walk and he will have to stop once or twice either due to chest pressure or dyspnea the chest pressure goes away with rest he went to see Dr. Marte yesterday due to the dyspnea and chest pain and swelling, was sent to the ED Review of Systems Review of Systems: All systems reviewed & are unremarkable except as noted in HPI & below Constitutional: + weight gain (swelling, about 7 lbs) and + daytime sleepiness; no fever, no chills, no sweats, no fatigue and no weakness Respiratory: + cough, + dyspnea, + dyspnea on exertion, + stopping breathing during sleep (history of apnea on sleep study) and + sputum production; no pain on inspiration and no wheezing Cardiovascular: + chest pain (exertional, gets better with rest), + dyspnea, + dyspnea on exertion and + edema; no chest pain at rest and no syncope Gastrointestinal: no abdominal pain, no early satiety, no nausea, no vomiting, no constipation and no diarrhea/loose stools Genitourinary: no dysuria Psychiatric: no depression and no anxiety Physical Exam Constitutional: WD/WN, vitals as above no acute distress Eyes: PERRL, conjunctivae normal, anicteric sclerae ENMT: external ear and nose normal, oropharynx normal (red discoloration of the nose) Neck: trachea midline, no thyromegaly Respiratory: normal respiratory effort; no respiratory distress Auscultation: + diminished lung sounds (bilaterally) Cardiovascular: Rate/Rhythm: regular rate and regular rhythm Heart Sounds: normal S1 and normal S2; no murmur Vessels: no JVD Extremities: normal capillary refill and + edema (pitting to knee bilaterally) Gastrointestinal (Abdomen): normal bowel sounds, soft, nontender, no hepatosplenomegaly Musculoskeletal: Head/Neck/Chest: normocephalic and head atraumatic Extremities: extremities normal to inspection, strength 5/5 throughout, + cyanosis and + clubbing Skin: no rashes, warm and dry Neurologic: patellar DTR's 2+ bilat, sensation intact and PERRL, EOMI, accommodation nl, no face palsy, no dysarthria Psychiatric: Orientation: alert and oriented x 3 Affect: euthymic affect Lymphatic: no cervical or axillary lymphadenopathy Results & Data Vital Signs (Past 12 Hours) Vital Signs Temp Pulse Pulse Resp BP Pulse Ox 03/08/19 11:35 36.9 C 58 L 19 102/52 L 92 03/08/19 11:17 57 L 18 90 03/08/19 07:22 36.9 C 69 19 113/69 92 03/08/19 07:02 80 18 90 03/08/19 03:52 62 17 92 03/08/19 03:51 36.9 C 64 21 128/72 92 03/08/19 01:23 64 18 91 Laboratory Results Laboratory Results - last 24 hr 03/07/19 03/07/19 03/07/19 14:55 14:55 14:55 WBC 11.04 H RBC 5.83 Hgb 18.0 Hct 56.7 H MCV 97.3 MCH 30.9 MCHC 31.7 L RDW Std Deviation 52.5 H RDW Coeff of Conrad 14.9 H Plt Count 182 MPV 11.5 H Immature Gran % (Auto) 0.4 Neut % (Auto) 71.3 Lymph % (Auto) 11.0 [place] % (Auto) 15.6 Eos % (Auto) 1.4 Baso % (Auto) 0.3 Immature Gran # (Auto) 0.04 H Neut # (Auto) 7.89 H Lymph # (Auto) 1.21 [place] # (Auto) 1.72 H Eos # (Auto) 0.15 Baso # (Auto) 0.03 PT Cancelled INR Cancelled APTT Cancelled PTT Ratio Cancelled ABG pH ABG pCO2 ABG pO2 ABG HCO3 ABG O2 Saturation ABG Base Excess Johny Test VBG pH VBG pCO2 VBG pO2 VBG HCO3 VBG O2 Saturation VBG Base Excess Barometric Pressure Oxygen Given Sodium 135 L Potassium 4.7 Chloride 94 L Carbon Dioxide 36 H Anion Gap 5.0 BUN 37 H Creatinine 1.62 H Est Cr Clr Drug Dosing 57.4 Est GFR ( Amer) 48.8 Est GFR (Non-Af Amer) 42.1 BUN/Creatinine Ratio 23.0 H Glucose 140 H POC Glucose Calcium 9.0 Magnesium 2.5 H Total Bilirubin 0.9 AST 15 ALT 17 Alkaline Phosphatase 98 Troponin I 0.594 H* NT-Pro-B Natriuret Pep 2693 H Total Protein 7.4 Albumin 3.5 Globulin 3.9 Albumin/Globulin Ratio 0.9 Hepatitis C Ab Screen 03/07/19 03/07/19 03/07/19 15:30 16:26 19:52 WBC RBC Hgb Hct MCV MCH MCHC RDW Std Deviation RDW Coeff of Conrad Plt Count MPV Immature Gran % (Auto) Neut % (Auto) Lymph % (Auto) [place] % (Auto) Eos % (Auto) Baso % (Auto) Immature Gran # (Auto) Neut # (Auto) Lymph # (Auto) [place] # (Auto) Eos # (Auto) Baso # (Auto) PT 10.9 INR 1.1 APTT 28.3 PTT Ratio 1.0 ABG pH ABG pCO2 ABG pO2 ABG HCO3 ABG O2 Saturation ABG Base Excess Johny Test VBG pH 7.25 L VBG pCO2 85 H VBG pO2 52 VBG HCO3 36 VBG O2 Saturation 85.1 VBG Base Excess 5.0 Barometric Pressure 735.6 Oxygen Given Sodium Potassium Chloride Carbon Dioxide Anion Gap BUN Creatinine Est Cr Clr Drug Dosing Est GFR ( Amer) Est GFR (Non-Af Amer) BUN/Creatinine Ratio Glucose POC Glucose Calcium Magnesium Total Bilirubin AST ALT Alkaline Phosphatase Troponin I 0.478 H* NT-Pro-B Natriuret Pep Total Protein Albumin Globulin Albumin/Globulin Ratio Hepatitis C Ab Screen 03/08/19 03/08/19 03/08/19 00:17 06:25 06:25 WBC 7.69 RBC 5.49 Hgb 17.0 Hct 53.1 H MCV 96.7 MCH 31.0 MCHC 32.0 RDW Std Deviation 52.2 H RDW Coeff of Conrad 14.7 H Plt Count 169 MPV 11.2 H Immature Gran % (Auto) 0.3 Neut % (Auto) 93.6 Lymph % (Auto) 4.4 [place] % (Auto) 1.7 Eos % (Auto) 0.0 Baso % (Auto) 0.0 Immature Gran # (Auto) 0.02 Neut # (Auto) 7.20 H Lymph # (Auto) 0.34 L [place] # (Auto) 0.13 Eos # (Auto) 0.00 Baso # (Auto) 0.00 PT INR APTT PTT Ratio ABG pH ABG pCO2 ABG pO2 ABG HCO3 ABG O2 Saturation ABG Base Excess Johny Test VBG pH VBG pCO2 VBG pO2 VBG HCO3 VBG O2 Saturation VBG Base Excess Barometric Pressure Oxygen Given Sodium 133 L Potassium 5.0 Chloride 95 L Carbon Dioxide 34 H Anion Gap 4.0 BUN 37 H Creatinine 1.35 Est Cr Clr Drug Dosing 64.0 Est GFR ( Amer) 60.8 Est GFR (Non-Af Amer) 52.4 BUN/Creatinine Ratio 27.3 H Glucose 196 H POC Glucose Calcium 8.3 L Magnesium Total Bilirubin AST ALT Alkaline Phosphatase Troponin I 0.405 H* NT-Pro-B Natriuret Pep Total Protein Albumin Globulin Albumin/Globulin Ratio Hepatitis C Ab Screen 03/08/19 03/08/19 03/08/19 06:25 06:35 07:20 WBC RBC Hgb Hct MCV MCH MCHC RDW Std Deviation RDW Coeff of Conrad Plt Count MPV Immature Gran % (Auto) Neut % (Auto) Lymph % (Auto) [place] % (Auto) Eos % (Auto) Baso % (Auto) Immature Gran # (Auto) Neut # (Auto) Lymph # (Auto) [place] # (Auto) Eos # (Auto) Baso # (Auto) PT INR APTT PTT Ratio ABG pH 7.29 L ABG pCO2 71 H ABG pO2 74 L ABG HCO3 33 H ABG O2 Saturation 94.1 ABG Base Excess 3.8 H Johny Test Pos VBG pH VBG pCO2 VBG pO2 VBG HCO3 VBG O2 Saturation VBG Base Excess Barometric Pressure 736.9 Oxygen Given 50% BiPap Sodium Potassium Chloride Carbon Dioxide Anion Gap BUN Creatinine Est Cr Clr Drug Dosing Est GFR ( Amer) Est GFR (Non-Af Amer) BUN/Creatinine Ratio Glucose POC Glucose 188 H Calcium Magnesium Total Bilirubin AST ALT Alkaline Phosphatase Troponin I NT-Pro-B Natriuret Pep Total Protein Albumin Globulin Albumin/Globulin Ratio Hepatitis C Ab Screen Neg 03/08/19 03/08/19 03/08/19 11:15 11:32 11:46 WBC RBC Hgb Hct MCV MCH MCHC RDW Std Deviation RDW Coeff of Conrad Plt Count MPV Immature Gran % (Auto) Neut % (Auto) Lymph % (Auto) [place] % (Auto) Eos % (Auto) Baso % (Auto) Immature Gran # (Auto) Neut # (Auto) Lymph # (Auto) [place] # (Auto) Eos # (Auto) Baso # (Auto) PT INR APTT PTT Ratio ABG pH Cancelled 7.30 L ABG pCO2 Cancelled 69 H ABG pO2 Cancelled 56 L ABG HCO3 Cancelled 33 H ABG O2 Saturation Cancelled 89.3 L ABG Base Excess Cancelled 3.7 H Johny Test Cancelled Pos VBG pH VBG pCO2 VBG pO2 VBG HCO3 VBG O2 Saturation VBG Base Excess Barometric Pressure Cancelled 736.6 Oxygen Given Cancelled 4L Sodium Potassium Chloride Carbon Dioxide Anion Gap BUN Creatinine Est Cr Clr Drug Dosing Est GFR ( Amer) Est GFR (Non-Af Amer) BUN/Creatinine Ratio Glucose POC Glucose 235 H Calcium Magnesium Total Bilirubin AST ALT Alkaline Phosphatase Troponin I NT-Pro-B Natriuret Pep Total Protein Albumin Globulin Albumin/Globulin Ratio Hepatitis C Ab Screen Medications Administered Current Inpatient Medications Al Hydrox/Mg Hydrox/Simethicone (Maalox) 15 ml PO Q4H PRN PRN Reason: Dyspepsia Stop: 04/06/19 19:04 Albuterol (Duoneb) 3 ml NEB QIDR JABARI Stop: 04/06/19 19:59 Last Admin: 03/08/19 11:22 Dose: 3 ml Documented by: Albuterol (Ventolin 0.083% 2.5mg/3ml) 2.5 mg NEB Q4H PRN PRN Reason: Shortness Of Breath Stop: 04/06/19 19:04 Aspirin (Ecotrin Ectab) 81 mg PO DAILY JABARI Stop: 04/07/19 08:59 Last Admin: 03/08/19 08:29 Dose: 81 mg Documented by: Atenolol (Tenormin) 12.5 mg PO DAILY [facility] Stop: 04/07/19 08:59 Last Admin: 03/08/19 08:30 Dose: 12.5 mg Documented by: Atorvastatin Calcium (Lipitor) 40 mg PO HS [facility] Stop: 04/06/19 20:59 Last Admin: 03/07/19 21:01 Dose: Not Given Documented by: Azithromycin (Zithromax) 500 mg PO Q24H JABARI; Protocol Stop: 03/13/19 23:59 Dextrose (Dextrose 50%) 25 - 50 ml IV UD PRN; Protocol PRN Reason: Hypoglycemia Protocol Stop: 04/07/19 01:44 Furosemide (Lasix) 40 mg PO BID17 [facility] Stop: 04/07/19 10:29 Last Admin: 03/08/19 11:32 Dose: 40 mg Documented by: Glucagon (Glucagen) 1 mg SQ UD PRN; Protocol PRN Reason: Hypoglycemia Protocol Stop: 04/07/19 01:44 Glucose (Glucose 40%) 15 - 30 gm PO UD PRN; Protocol PRN Reason: Hypoglycemia Protocol Stop: 04/07/19 01:44 Glucose (Dex4 Glucose) 4 - 8 tabs PO UD PRN; Protocol PRN Reason: Hypoglycemia Protocol Stop: 04/07/19 01:44 Haloperidol Lactate (Haldol) 5 mg IM Q4H PRN PRN Reason: Agitation Stop: 04/06/19 22:37 Methylprednisolone 60 mg/ (Syringe) 0.96 mls @ 1.5 mls/min IV Q6H JABARI Stop: 04/06/19 18:59 Last Admin: 03/08/19 12:11 Dose: 1.5 mls/min Documented by: Lorazepam (Ativan) 1 mg in 2 mls @ 2 mls/min IV Q4H PRN PRN Reason: Anxiety Stop: 04/06/19 22:37 Insulin Aspart (Novolog Flexpen) 0 units SC ACHS [facility] Stop: 04/07/19 07:29 Last Admin: 03/08/19 12:10 Dose: 11 units Documented by: Magnesium Hydroxide (Milk Of Magnesia) 30 ml PO Q12H PRN PRN Reason: Constipation Stop: 04/06/19 19:04 Miscellaneous (Carbohydrates For Hypoglycemia) 15 - 30 gm PO UD PRN PRN Reason: Hypoglycemia Treatment Stop: 04/07/19 01:44 Morphine Sulfate (Morphine Sulfate) 2 mg IV Q30M PRN PRN Reason: Chest Pain Stop: 03/21/19 19:04 Polyethylene Glycol (Miralax Powder Packet) 17 gm PO DAILY PRN PRN Reason: Constipation Stop: 04/06/19 19:04 Rivaroxaban (Xarelto) 20 mg PO DAILY [facility] Stop: 04/07/19 08:59 Last Admin: 03/08/19 08:31 Dose: 20 mg Documented by: Sotalol HCl (Betapace) 160 mg PO BID [facility] Stop: 04/06/19 20:59 Last Admin: 03/08/19 08:29 Dose: 160 mg Documented by: Zolpidem Tartrate (Ambien) 5 mg PO HS PRN PRN Reason: Sleep Stop: 04/06/19 19:04 PG Care Time/CCT Total # of Minutes Spent Total Time Spent with Patient: Total time spent is greater than 50% in coordination of care (as documented) at patient's floor/unit and/or counseling patient: (1) Respiratory failure with hypoxia and hypercapnia Chronicity: unspecified Qualified Code(s): J96.91 - Respiratory failure, unspecified with hypoxia; J96.92 - Respiratory failure, unspecified with hypercapnia
[2019-03-08] MEDS: LORazepam 1 MG/2 ML VIAL IV PRN ×2 (14:55→19:03)
--- NOTE | 2019-03-08 18:04 | Cardiology Consultation ---
Date of Consultation March 08, 2019 Assessment & Plan (1) Respiratory failure with hypoxia and hypercapnia: Patient with acute on chronic respiratory insufficiency which appears to be primarily noncardiac. No recent weight gain, neck veins not obviously elevated, Agree with continuing his usual furosemide 40 mg b.i.d. Will continue to follow over the weekend and closely monitor his volume status. (2) Ischemic cardiomyopathy: Current echocardiogram is quite technically limited, but showed grossly normal LV systolic function with no obvious major wall motion abnormalities. Given prior echo findings, suspect that he does have some apical hypokinesis, but the apex is not well visualized presently. Troponin elevation is nonspecific, particularly since it is trending downward. Very likely supply demand mismatch in patient with acute hypoxemia. No ECG changes or classic anginal-type chest pain to suggest acute event. Continue atenolol, aspirin, and statin. He is fully anticoagulated with rivaroxaban, therefore no role for heparin. Again, doubt acute cardiac event, therefore main treatment will be management of his hypoxia/respiratory failure. (3) CAD (coronary artery disease): (4) CKD (chronic kidney disease), stage III: (5) Hypertension: BP well controlled on minimal dose of atenolol (6) Diabetes: (7) Atrial fibrillation: Currently in sinus rhythm on sotalol, anticoagulated with rivaroxaban. Continue to monitor rhythm. History of Present Illness Attending Physician: Rah Alexandra DO History of Present Illness 73-year-old man with multiple medical problems including significant COPD and prior congestive heart failure who was seen by Silva Cantrell PA-C in the [facility] offices yesterday for dyspnea on exertion and referred to the ER for admission when he was found to have an oxygen saturation of 72%. 03/07/19 office note By Nedra Cantrell PA-C: He states that he has been feeling rather poorly over the last month or so. He has noted increased shortness of breath. He feels short of breath with just ambulating from room to room in his home. He also notes shortness of breath for the first 1-2 minutes of lying down. He wakes up short of breath about 2 times a night. He has had a cough with white sputum production. He denies fevers or chills. He notes chronic clear rhinorrhea. He notes increased lower extremity edema. He carries a long-standing history of intermittent chest tightness. The chest tightness occurs at random, at rest or with exertion. It lasts a couple of minutes in duration before self resolving. He feels that he frequency of the chest tightness has increased recently. He denies abnormal bleeding such as melena, hematochezia, or hematuria. His , who is present with him today, states that he has been more confused recently. He has also had increased tiredness/fatigue and has been sleeping more often. He currently smokes 1 ppd. Past cardiac history (from [facility]): The patient was first evaluated by Dr. Marte on 10/17/2014 for complaints of fatigue. He was first diagnosed with atrial fibrillation in 2008. Treated with amiodarone and warfarin. Electrical cardioversion at the time. LV ejection fraction in 2008 was 65%. He received his cardiac care at that time under the direction of Dr. Nazia Catalan. Development of congestive heart failure October 2013. Hospitalized at [facility]. He had recurrence of his atrial fibrillation documented. Diagnostic cardiac catheterization Nov 04 2013 performed via right radial artery. This revealed < 20% left main stenosis. Total early mid LAD occlusion after large diagonal. Collateral flow to LAD. Left to left and [id number] collaterals. 20% left circumflex stenosis. 20-30% right coronary artery stenosis. Anticoagulation therapy switched from warfarin to Xarelto. Started on sotalol therapy. He then underwent successful electrical cardioversion. Within a month he had recurrence of the atrial fibrillation. Sotalol dose increased. He then underwent repeat successful electrical cardioversion. Echocardiogram 01/22/2014 with LV ejection fraction 45-50%. Inferoseptal, basal inferior, apical inferior, and apical hypokinesis to akinesis reported. He has no allergies. No significant past surgical history. Status post tonsillectomy 1952. Long-standing prior cigarette smoking history up to 2 packs a day. He stopped in 2013 but has since resumed cigarette smoking. He does not drink alcohol. No family history of premature coronary artery disease. Symptoms consistent with sleep apnea .Severe fatigue. CBC and TSH were normal. Echocardiogram 11/13/2014 with normal chamber dimensions, LV ejection fraction 45-50%. Left ventricular diastolic dysfunction. No significant valvular abnormalities. Mid to distal septal and apical hypokinesis to akinesis.Sleep study November 2014 with obstructive sleep apnea with significant hypoxemia noted with sleep. Repeat sleep study with CPAP showed good response. Pressure of 8 cm of water achieved good results. He was not using his CPAP as of his last clinic visit with Dr. Marte in January 2019. Overnight, the patient was intermittently on BiPAP and supplemental oxygen, at times refusing both, repeatedly inquiring as to whether he could leave the hospital. Hemodynamically, his heart rate was low normal and blood pressure normotensive to mildly hypotensive. No rhythm disturbances on monitor. At the time of my evaluation this afternoon, he was actively engaged in conversation with Dr. Alexandra about his desire to leave the hospital regardless of adverse consequences. He denied any chest pain or acute dyspnea. Effusion he did admit to dyspnea on minimal exertion at home and to periods of confusion. Allergies Allergy/AdvReac Type Severity Reaction Status Date / Time No Known Allergies Allergy Unverified 03/07/19 17:00 Home Medications Home Medications Medication Instructions Recorded Confirmed Type acarbose 50 mg PO TID 03/07/19 03/07/19 History aspirin [Aspirin Low Dose] 81 mg PO DAILY 03/07/19 03/07/19 History atenolol 12.5 mg PO DAILY 03/07/19 03/07/19 History atorvastatin 40 mg PO HS 03/07/19 03/07/19 History cinnamon bark [Cinnamon] 1,000 mg PO DAILY 03/07/19 03/07/19 History furosemide 40 mg PO BID 03/07/19 03/07/19 History glipizide 10 mg PO BID 03/07/19 03/07/19 History ramipril 50 mg PO BID 03/07/19 03/07/19 History rivaroxaban [Xarelto] 20 mg PO DAILY 03/07/19 03/07/19 History sotalol 160 mg PO BID 03/07/19 03/07/19 History spironolactone 25 mg PO DAILY 03/07/19 03/07/19 History Patient History Medical History HLD (hyperlipidemia) (Chronic) Hypertension (Chronic) Diabetes (Chronic) Atrial fibrillation (Chronic) COPD (chronic obstructive pulmonary disease) (Chronic) Family History Family history non-contributory Social History Preferred Language: Irish Communication Ability: Effective Beliefs That Will Affect Care: None Current Living Situation: Spouse Feels Safe at Home: Yes Smoking Status: Heavy tobacco smoker Tobacco Type: cigarettes Second Hand Exposure: No Hx Alcohol Use: No Hx Substance Use: No Review of Systems Constitutional: + fatigue; no weight gain Eyes: no problem reported Ear, Nose, Mouth, Throat: no problem reported Respiratory: + cough, + change in sputum, + dyspnea and + dyspnea on exertion Cardiovascular: as per Subjective / HPI, + dyspnea on exertion, + orthopnea, + paroxysmal nocturnal dyspnea and + edema; no palpitations and no syncope Gastrointestinal: no abdominal pain, no heartburn and no change in bowel habits Genitourinary: no problem reported Musculoskeletal: no myalgia Integumentary: no new lesions Neurologic: + generalized weakness; no gait abnormality, no falls, no numbness and no syncope Psychiatric: + confusion Endocrine: no problem reported Hematologic / Lymphatic: no easy bleeding and no easy bruising Allergy / Immunological: no problem reported Physical Exam Physical Exam: No acute distress, but lacks insight and is at least mildly confused. Skin: No unusual lesions or ecchymosis. HEENT: Unremarkable. Neck: Jugular venous pulse difficult to assess but not obviously elevated at 90, no carotid bruits. Lungs: Markedly decrease breath sounds with poor air flow, no obvious wheezing or crackles. No accessory muscle use, intercostal retraction, or nasal flaring. Cardiac: Regular rhythm with faint heart tones and no obvious murmur or gallop. Abdomen: Benign. Extremities: Nontender with trace-1+ pretibial edema. Intact peripheral pulses. Neurologic: Somewhat paranoid ideation and limited insight, grossly nonfocal Results & Data Vital Signs (Past 12 Hours) Vital Signs Temp Pulse Resp BP Pulse Ox 03/08/19 15:03 97.3 F L 64 20 138/73 87 L 03/08/19 11:35 98.4 F 58 L 19 102/52 L 92 03/08/19 11:17 57 L 18 90 03/08/19 07:22 98.4 F 69 19 113/69 92 03/08/19 07:02 80 18 90 Laboratory Results 03/07/19 03/07/19 03/08/19 14:55 19:52 00:17 WBC Hgb ABG pH ABG pCO2 ABG pO2 ABG HCO3 Creatinine 1.62 H Troponin I 0.594 H* 0.478 H* 0.405 H* NT-Pro-B Natriuret Pep 2693 H 03/08/19 03/08/19 03/08/19 06:25 06:25 11:46 WBC 7.69 Hgb 17.0 ABG pH 7.30 L ABG pCO2 69 H ABG pO2 56 L ABG HCO3 33 H Creatinine 1.35 Troponin I NT-Pro-B Natriuret Pep Echocardiogram was technically limited but showed grossly normal left ventricular size and systolic function with no obvious wall motion abnormalities or valvular abnormalities.. ECG showed sinus rhythm at 71 bpm, PACs, minor T-wave flattening. Diagnostic Findings CXR IMPRESSION: 1. Prominent right mediastinal contour, a nonspecific finding. A CT of the chest with contrast is recommended. 2. Lower lung interstitial thickening. No consolidation to suggest pneumonia. CT of the chest showed no evidence of pulmonary embolism. Mild emphysema with pulmonary hypertension suggested. (1) Respiratory failure with hypoxia and hypercapnia Chronicity: unspecified Qualified Code(s): J96.91 - Respiratory failure, unspecified with hypoxia; J96.92 - Respiratory failure, unspecified with hypercapnia
[2019-03-08] MEDS: NICOTINE 21 MG/24 HR TDSY TD SCH (20:23)
[2019-03-08] MEDS: ATORVASTATIN 40 MG TAB PO SCH (21:23)
[2019-03-08] MEDS: AZITHROMYCIN 250 MG TAB PO SCH (21:23)
[2019-03-09] MEDS: methylPREDNISolone 60 MG in SYRINGE 0 ML IV SCH ×2 (00:09→06:02)
[2019-03-09] MEDS: LORazepam 1 MG/2 ML VIAL IV PRN (00:38)
[2019-03-09 07:18] LABS: Estimated Average Glucose 154 mg/dl
[2019-03-09] MEDS: ALBUT/IPRATROP 3MG/0.5MG NEB 3 ML VIAL NEB SCH ×4 (07:25→19:12)
[2019-03-09] MEDS: SOTALOL HCL 80 MG TAB PO SCH ×2 (08:10→20:09)
[2019-03-09 08:11] LABS: Hematocrit (blood only) 53.3 % (42-52); Hemoglobin 16.8 g/dL (14.0-18.0); Mean Corpuscular Hgb Conc 31.5 g/dL (32-36); Mean Corpuscular Volume 97.6 fL (80-100); Platelet Count 180 K/uL (130-400); RDW Coefficient of Variation 14.5 % (11.5-14.5); RDW Standard Deviation 51.5 fL (36.4-46.3); Red Blood Count 5.46 M/uL (4.7-6.1); White Blood Count 16.78 K/uL (4.8-10.8)
[2019-03-09] MEDS: ASPIRIN 81 MG ECTAB PO SCH (08:11)
[2019-03-09] MEDS: NICOTINE 21 MG/24 HR TDSY TD SCH (08:11)
[2019-03-09] MEDS: ATENOLOL 25 MG TABLET PO SCH (08:11)
[2019-03-09] MEDS: RIVAROXABAN 20 MG TAB PO SCH (08:12)
[2019-03-09] MEDS: INSULIN ASPART 100 UNITS/ML 3 ML PEN SC SCH ×4 (08:14→20:20)
[2019-03-09 08:16] LABS: HCO3 VBG 38 mmol/L; PCO2 VBG 87 mmHg (38-50); PO2 VBG 22 mmHg; pH VBG 7.25 (7.36-7.41)
[2019-03-09 08:17] LABS: Oxygen Saturation VBG < 60.0 %
[2019-03-09 08:40] LABS: BUN Creatinine Ratio 35.8 (10-20); Est GFR (African American) 59.7; Est GFR (Non-African American) 51.5; Potassium 5.9 mmol/L (3.5-5.1)
[2019-03-09] MEDS ORDERED: DEXTROSE 50% 50 ML SYRINGE IV ONE (10:25)
--- NOTE | 2019-03-09 10:27 | Hospitalist Progress Note ---
Date of Service March 09, 2019 Assessment & Plan (1) Respiratory failure with hypoxia and hypercapnia: likely some degree of chronic hypoxia and chronic hypercapnia as well but no testing done in the past patient is always short of breath, presented with CO2 in the 70's with pH 7.3 likely has chronic CO2 level in the mid 50's or 60 oxygen level is stable on 4L, 90% used BIPAP all night last night, morning VBG showed CO2 of 85 and pH of 7.25 placed back on BIPAP at the time he had the VBG he had been off the BIPAP for an hour to eat breakfast will keep on BIPAP today, repeat VBG at 1300 will ask respiratory therapy to increase the IPAP and rate to help blow off CO2 consulted Dr. Edwards, discussed with him, he will see patient updated family at the bedside, they are planning on being here at the bedside at all times to help the patient be more comfortable (2) Heart failure with preserved ejection fraction: edema in legs, pitting hold Lasix this morning due to low blood pressures echo 03/08 showed grade I diastolic dysfunction, normal EF likely has some degree of pulmonary HTN given long standing lung disease no evidence of acute heart failure at this time (3) Exertional angina: admits to chest pain and pressure on exertion improves with rest likely with CAD given his h/o smoking and diabetes troponin elevated but all consistent at 0.4 and 0.5 would not consider this an NSTEMI as he has no active chest pain consult cardiology no wall motion changes seen on echo discussed with Dr. Sandoval, no plans for further cardiac testing while here (4) COPD exacerbation: taper solu medrol to 60mg q12 from q6 today, no wheezing on exam continue with Duoneb QID no need for antibiotics as no signs of increased purulence will need to be on Spiriva and Advair prior to discharge would benefit from PFT testing as outpatient consulted pulmonary to see today (5) Hypertension: BP low normal continue home regimen with Atenolol Lasix resumed (6) Diabetes: diabetic diet and Novolog SS monitor for hypoglycemia (7) Atrial fibrillation: sinus rhythm on the monitor continue on Sotalol and Atenolol anticoagulated on Xarelto (8) CKD (chronic kidney disease), stage III: Cr is stable between 1.3 and 1.6 repeat tomorrow (9) Encounter for smoking cessation counseling: patient has been smoking since age 12 said that he is not interested in quiting told him that if he quits he could preserve what lung function he still has he said "everyone dies eventually, I'm not gonna quit" (10) HLD (hyperlipidemia): continue statin therapy (11) Hyperkalemia: up at 5.9 today no clear reason, Cr is stable, no medications to raise the K will give dextrose and insulin and will give calcium repeat BMP at 1300 Subjective patient slept most of the night with Ativan IV and BIPAP his was able to calm him down despite being on the BIPAP, he was more lethargic this morning CO2 up at 85 and pH 7.25 discussed with family at the bedside, keep on BIPAP to lower CO2 appreciate discussion with Dr. Edwards family asking about home oxygen, assured them that we will get two step prior to discharge but he will need to be here over the weekend reviewed other labs, K up at 5.9, Cr stable at 1.37, Na normal at 135 d/w RN, will give dextrose and insulin Review of Systems Review of Systems: Unobtainable due to reduced consciousness Physical Exam Constitutional: WD/WN, vitals as above no acute distress Eyes: PERRL, conjunctivae normal, anicteric sclerae ENMT: external ear and nose normal, oropharynx normal (red discoloration of the nose) Neck: trachea midline, no thyromegaly Respiratory: + abnormal respiratory effort (hypoventilation) and no respiratory distress Auscultation: + diminished lung sounds (bilaterally) Cardiovascular: Rate/Rhythm: regular rate and regular rhythm Heart Sounds: normal S1 and normal S2; no murmur Vessels: no JVD Extremities: normal capillary refill and + edema (pitting to knee bilaterally) Gastrointestinal (Abdomen): normal bowel sounds, soft, nontender, no hepatosplenomegaly Musculoskeletal: Head/Neck/Chest: normocephalic and head atraumatic Extremities: extremities normal to inspection, strength 5/5 throughout, + cyanosis and + clubbing Skin: no rashes, warm and dry Neurologic: patellar DTR's 2+ bilat, sensation intact and PERRL, EOMI, accommodation nl, no face palsy, no dysarthria Psychiatric: Orientation: alert and oriented x 3 Affect: euthymic affect Lymphatic: no cervical or axillary lymphadenopathy Results & Data Vital Signs (Past 12 Hours) Vital Signs Temp Pulse Pulse Resp BP Pulse Ox 03/09/19 07:25 36.7 C 67 20 99/64 L 94 03/09/19 02:37 36.5 C 60 16 98/65 L 94 03/09/19 01:40 62 18 92 03/08/19 23:34 36.4 C L 60 16 109/69 94 03/08/19 23:04 60 Laboratory Results Laboratory Results - last 24 hr 03/08/19 03/08/19 03/08/19 11:15 11:32 11:46 WBC RBC Hgb Hct MCV MCH MCHC RDW Std Deviation RDW Coeff of Conrad Plt Count MPV ABG pH Cancelled 7.30 L ABG pCO2 Cancelled 69 H ABG pO2 Cancelled 56 L ABG HCO3 Cancelled 33 H ABG O2 Saturation Cancelled 89.3 L ABG Base Excess Cancelled 3.7 H Johny Test Cancelled Pos VBG pH VBG pCO2 VBG pO2 VBG HCO3 VBG O2 Saturation VBG Base Excess Barometric Pressure Cancelled 736.6 Oxygen Given Cancelled 4L Sodium Potassium Chloride Carbon Dioxide Anion Gap BUN Creatinine Est Cr Clr Drug Dosing Est GFR ( Amer) Est GFR (Non-Af Amer) BUN/Creatinine Ratio Glucose POC Glucose 235 H Estimat Average Glucose Hemoglobin A1c Calcium 03/08/19 03/09/19 03/09/19 20:31 05:42 07:25 WBC RBC Hgb Hct MCV MCH MCHC RDW Std Deviation RDW Coeff of Conrad Plt Count MPV ABG pH ABG pCO2 ABG pO2 ABG HCO3 ABG O2 Saturation ABG Base Excess Johny Test VBG pH VBG pCO2 VBG pO2 VBG HCO3 VBG O2 Saturation VBG Base Excess Barometric Pressure Oxygen Given Sodium Potassium Chloride Carbon Dioxide Anion Gap BUN Creatinine Est Cr Clr Drug Dosing Est GFR ( Amer) Est GFR (Non-Af Amer) BUN/Creatinine Ratio Glucose POC Glucose 212 H 200 H Estimat Average Glucose 154 Hemoglobin A1c 7.0 H Calcium 03/09/19 03/09/19 03/09/19 07:54 07:54 07:54 WBC 16.78 H RBC 5.46 Hgb 16.8 Hct 53.3 H MCV 97.6 MCH 30.8 MCHC 31.5 L RDW Std Deviation 51.5 H RDW Coeff of Conrad 14.5 Plt Count 180 MPV 11.0 H ABG pH ABG pCO2 ABG pO2 ABG HCO3 ABG O2 Saturation ABG Base Excess Johny Test VBG pH 7.25 L VBG pCO2 87 H VBG pO2 22 VBG HCO3 38 VBG O2 Saturation < 60.0 VBG Base Excess 6.0 Barometric Pressure 734.5 Oxygen Given Sodium 135 L Potassium 5.9 H D Chloride 95 L Carbon Dioxide 37 H Anion Gap 3.0 BUN 49 H Creatinine 1.37 Est Cr Clr Drug Dosing 63.0 Est GFR ( Amer) 59.7 Est GFR (Non-Af Amer) 51.5 BUN/Creatinine Ratio 35.8 H Glucose 211 H POC Glucose Estimat Average Glucose Hemoglobin A1c Calcium 9.0 Medications Administered Current Inpatient Medications Al Hydrox/Mg Hydrox/Simethicone (Maalox) 15 ml PO Q4H PRN PRN Reason: Dyspepsia Stop: 04/06/19 19:04 Albuterol (Duoneb) 3 ml NEB QIDR JABARI Stop: 04/06/19 19:59 Last Admin: 03/08/19 19:26 Dose: Not Given Documented by: Albuterol (Ventolin 0.083% 2.5mg/3ml) 2.5 mg NEB Q4H PRN PRN Reason: Shortness Of Breath Stop: 04/06/19 19:04 Aspirin (Ecotrin Ectab) 81 mg PO DAILY JABARI Stop: 04/07/19 08:59 Last Admin: 03/09/19 08:11 Dose: 81 mg Documented by: Atenolol (Tenormin) 12.5 mg PO DAILY JABARI Stop: 04/07/19 08:59 Last Admin: 03/09/19 08:11 Dose: 12.5 mg Documented by: Atorvastatin Calcium (Lipitor) 40 mg PO HS JABARI Stop: 04/06/19 20:59 Last Admin: 03/08/19 21:23 Dose: 40 mg Documented by: Azithromycin (Zithromax) 500 mg PO Q24H JABARI; Protocol Stop: 03/13/19 23:59 Last Admin: 03/08/19 21:23 Dose: 500 mg Documented by: Dextrose (Dextrose 50%) 25 - 50 ml IV UD PRN; Protocol PRN Reason: Hypoglycemia Protocol Stop: 04/07/19 01:44 Furosemide (Lasix) 40 mg PO [id number] JABARI Stop: 04/07/19 10:29 Last Admin: 03/08/19 17:04 Dose: Not Given Documented by: Glucagon (Glucagen) 1 mg SQ UD PRN; Protocol PRN Reason: Hypoglycemia Protocol Stop: 04/07/19 01:44 Glucose (Glucose 40%) 15 - 30 gm PO UD PRN; Protocol PRN Reason: Hypoglycemia Protocol Stop: 04/07/19 01:44 Glucose (Dex4 Glucose) 4 - 8 tabs PO UD PRN; Protocol PRN Reason: Hypoglycemia Protocol Stop: 04/07/19 01:44 Haloperidol Lactate (Haldol) 5 mg IM Q4H PRN PRN Reason: Agitation Stop: 04/06/19 22:37 Methylprednisolone 60 mg/ (Syringe) 0.96 mls @ 1.5 mls/min IV Q6H JABARI Stop: 04/06/19 18:59 Last Admin: 03/09/19 06:02 Dose: 1.5 mls/min Documented by: Lorazepam (Ativan) 1 mg in 2 mls @ 2 mls/min IV Q4H PRN PRN Reason: Anxiety Stop: 04/06/19 22:37 Last Admin: 03/09/19 00:38 Dose: 2 mls/min Documented by: Calcium Gluconate 1,000 mg/ (Sodium Chloride) 60 mls @ 240 mls/hr IV NOW ONE Stop: 03/09/19 10:54 Insulin Human Regular 10 units (/ Syringe) 10 mls @ 40 mls/min IV NOW ONE Stop: 03/09/19 10:31 Insulin Aspart (Novolog Flexpen) 0 units SC ACHS JABARI Stop: 04/07/19 07:29 Last Admin: 03/09/19 08:14 Dose: 8 units Documented by: Magnesium Hydroxide (Milk Of Magnesia) 30 ml PO Q12H PRN PRN Reason: Constipation Stop: 04/06/19 19:04 Miscellaneous (Carbohydrates For Hypoglycemia) 15 - 30 gm PO UD PRN PRN Reason: Hypoglycemia Treatment Stop: 04/07/19 01:44 Miscellaneous (Remove Nicoderm Patch) 1 ea N/A HS [facility] Stop: 04/07/19 22:59 Last Admin: 03/09/19 00:09 Dose: 1 ea Documented by: Morphine Sulfate (Morphine Sulfate) 2 mg IV Q30M PRN PRN Reason: Chest Pain Stop: 03/21/19 19:04 Nicotine (Nicoderm Cq) 21 mg TD QAM [facility] Stop: 04/07/19 18:59 Last Admin: 03/09/19 08:11 Dose: 21 mg Documented by: Polyethylene Glycol (Miralax Powder Packet) 17 gm PO DAILY PRN PRN Reason: Constipation Stop: 04/06/19 19:04 Rivaroxaban (Xarelto) 20 mg PO DAILY [facility] Stop: 04/07/19 08:59 Last Admin: 03/09/19 08:12 Dose: 20 mg Documented by: Sotalol HCl (Betapace) 160 mg PO BID [facility] Stop: 04/06/19 20:59 Last Admin: 03/09/19 08:10 Dose: 160 mg Documented by: Zolpidem Tartrate (Ambien) 5 mg PO HS PRN PRN Reason: Sleep Stop: 04/06/19 19:04 PG Care Time/CCT Total # of Minutes Spent Total Time Spent with Patient: Total time spent is greater than 50% in coordination of care (as documented) at patient's floor/unit and/or counseling patient: Critical Care Time: Yes Total Critical Care Time: 40 Prolonged Care Time Prolonged Care Time: No (1) Respiratory failure with hypoxia and hypercapnia Chronicity: unspecified Qualified Code(s): J96.91 - Respiratory failure, unspecified with hypoxia; J96.92 - Respiratory failure, unspecified with hy percapnia
[2019-03-09] MEDS ORDERED: INSULIN HUMAN REGULAR PER UNIT 10 UNITS in SYRINGE 9.9 ML IV ONE (10:30)
[2019-03-09] MEDS ORDERED: CALCIUM GLUCONATE 10% 1,000 MG in SODIUM CHLORIDE 0.9% 50 ML IV ONE (10:40)
--- NOTE | 2019-03-09 12:05 | Pulmonary Consultation ---
Date of Consultation March 09, 2019 Assessment & Plan (1) COPD (chronic obstructive pulmonary disease): Impression: 1. Acute exacerbation of COPD, gold level cannot be determined as the patient does not have PFT, grade A. 2. Acute on chronic hypercapnic respiratory failure. 3. Cor pulmonale. 4. 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 5. Altered mental status secondary to hypercapnia. Plan: 1. Continue Solu-Medrol at 40 mg every 12 hours. 2. Continue bronchodilators. 3. I will discontinue morphine as it is histaminergic. 4. I will discontinue Ativan. 5. Continue his cardiac medications. 6. Adjust his BiPAP to a higher minute volume. 7. Glucose controlled. 8. Patient will need AVAP upon discharge to home. 9. Start the patient on long-acting beta agonist. 10. He will need pulmonary follow-up as an outpatient as well. 11. Discussed in details with the family. Thank you, will follow. History of Present Illness Reason for Consultation: Acute on chronic hypercapnic respiratory failure Requesting Physician: Dr. Alexandra Attending Physician: Rah Alexandra, History of Present Illness Dear Dr. Alexandra: Thank you for the kind referral of Mr. Medrano to pulmonary service. This is 73-year-old gentleman with history of active smoking, COPD, coronary artery disease status post stent placement [address] daigle, history of chronic kidney disease, hyperlipidemia, diabetes, A. fib, COPD which she has not been treated for it, obstructive sleep apnea morbid obesity. The patient presented to the hospital due to extreme lethargy and increased shortness of breath. His level of exercise according to the family was less than few feet going to the bathroom even at home. The patient did not have any chest pain to report. When I interviewed the patient, he was somnolent and lethargic, review of system was not obtainable from him. Information obtained from his son who were at the bedside.s no cough was reported no hemoptysis no weight loss, but only decreased activity and altered mental status with increased lethargy. The patient usually follow with his certified shorthand reporter on regular basis. He lives in [place] and he comes to see his doctor only once every 3 months. 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 No recent hospitalization, no fever constitutional symptoms nausea vomiting or aspiration. He had no epigastric pain no abdominal pain no change in bowel movements or urine habits reported. Family history is not known. And he has no surgical history on his chest cavity other than PCI done in 2015. He is active smoker and works in labor as mentioned above. And the rest of his past medical history as mentioned above. Allergies Allergy/AdvReac Type Severity Reaction Status Date / Time No Known Allergies Allergy Unverified 03/07/19 17:00 Home Medications Home Medications Medication Instructions Recorded Confirmed Type acarbose 50 mg PO TID 03/07/19 03/07/19 History aspirin [Aspirin Low Dose] 81 mg PO DAILY 03/07/19 03/07/19 History atenolol 12.5 mg PO DAILY 03/07/19 03/07/19 History atorvastatin 40 mg PO HS 03/07/19 03/07/19 History cinnamon bark [Cinnamon] 1,000 mg PO DAILY 03/07/19 03/07/19 History furosemide 40 mg PO BID 03/07/19 03/07/19 History glipizide 10 mg PO BID 03/07/19 03/07/19 History ramipril 50 mg PO BID 03/07/19 03/07/19 History rivaroxaban [Xarelto] 20 mg PO DAILY 03/07/19 03/07/19 History sotalol 160 mg PO BID 03/07/19 03/07/19 History spironolactone 25 mg PO DAILY 03/07/19 03/07/19 History Patient History Medical History HLD (hyperlipidemia) (Chronic) Hypertension (Chronic) Diabetes (Chronic) Atrial fibrillation (Chronic) COPD (chronic obstructive pulmonary disease) (Chronic) Family History Other Family history non-contributory Social History Preferred Language: [place] Communication Ability: Effective Beliefs That Will Affect Care: None Current Living Situation: Spouse Feels Safe at Home: Yes Smoking Status: Heavy tobacco smoker Tobacco Type: cigarettes Second Hand Exposure: No Hx Alcohol Use: No Hx Substance Use: No Review of Systems Review of Systems: Review of system otherwise was unremarkable including 14 systems which have been obtained from the sons, the patient himself could not give me a review of system. Physical Exam Physical Exam: 72-year-old gentleman, lethargic, on the BiPAP, open his eyes to command but does not speak in full sentences, confused, no JVD, S1-S2 regular rate and rhythm, distant breath sounds bilaterally, diminished air movement, abdomen is obese but benign, edema in the periphery was noted. No varicose veins. No skin rash and no oral lesions. Neurologically he is lethargic and difficult to assess. Results & Data Vital Signs (Past 12 Hours) Vital Signs Temp Pulse Pulse Resp BP BP Pulse Ox 03/09/19 11:27 36.8 C 60 20 109/65 93 03/09/19 10:45 58 L 17 93 03/09/19 10:44 58 L 17 93 03/09/19 07:25 36.7 C 58 L 58 L 17 99/64 L 92 03/09/19 02:37 36.5 C 60 16 98/65 L 94 03/09/19 01:40 62 18 92 Laboratory Results His labs were reviewed which showed leukocytosis, hematocrit of 53, and low platelets at 180. Noted the patient ABG showed acute on chronic respiratory acidosis with metabolic alkalosis. He had elevated BUN/creatinine at baseline. Hyperglycemia as well. And poorly controlled diabetes with hemoglobin A1c of 7%. Diagnostic Findings CAT scan of the chest which I reviewed personally as well as a chest x-ray which showed COPD changes, pulmonary hypertension, no infiltrate. No PE.
--- NOTE | 2019-03-09 12:43 | Cardiology Progress Note ---
Date of Service March 09, 2019 Assessment & Plan (1) Respiratory failure with hypoxia and hypercapnia: Patient with acute on chronic respiratory insufficiency which appears to be primarily noncardiac. Did discuss with extended family that his cardiac status was fairly stable but that he has serious underlying pulmonary disease which will require ongoing management. His diuretic was held this morning and he does now appear minimally hypervolemic. Given his hyperkalemia, reasonable to restart diuretic this evening. Case discussed with Dr. Alexandra. (2) Ischemic cardiomyopathy: Echocardiogram this admission is quite technically limited, but showed grossly normal LV systolic function with no obvious major wall motion abnormalities. Given prior echo findings, suspect that he does have some apical hypokinesis, but the apex is not well visualized presently. Troponin elevation is nonspecific, particularly since it is trending downward. Very likely supply demand mismatch in patient with acute hypoxemia. No ECG changes or classic anginal-type chest pain to suggest acute event. Continue atenolol, aspirin, and statin. He is fully anticoagulated with rivaroxaban, therefore no role for heparin. Main treatment will be management of his hypoxia/respiratory failure. (3) CAD (coronary artery disease): (4) CKD (chronic kidney disease), stage III: (5) Hypertension: BP normotensive to mildly hypotensive on low-dose atenolol. He does seem a bit bradycardic given his physiologic status (borderline compensated respiratory insufficiency), therefore would be reasonable to discontinue atenolol if hypotension recurs or bradycardia persists. (6) Diabetes: (7) Atrial fibrillation: Currently in sinus rhythm on sotalol (QTc OK), anticoagulated with lea roxaban. Continue to monitor rhythm. Subjective Patient HCTZ and confused last evening, however he slept fairly well and is much less agitated and more cooperative this morning. He denies any chest pain, dyspnea rest, or other symptoms currently. Physical Exam Physical Exam: No acute distress, appears reasonably comfortable. Skin: No unusual lesions or ecchymosis. HEENT: Unremarkable. Neck: Jugular venous pulse just above the clavicle with patient sitting at 70, no carotid bruits. Lungs: Markedly decrease breath sounds with poor but now audible air flow, no obvious wheezing or crackles. No accessory muscle use, intercostal retraction, or nasal flaring. Cardiac: Regular rhythm with faint heart tones and no obvious murmur or gallop. Abdomen: Benign. Extremities: Nontender with only trace pretibial edema. Intact peripheral pulses. Neurologic: Answers questions appropriately, grossly nonfocal. Results & Data Vital Signs (Past 12 Hours) Vital Signs Temp Pulse Pulse Resp BP BP Pulse Ox 03/09/19 11:27 98.2 F 60 20 109/65 93 03/09/19 10:45 58 L 17 93 03/09/19 10:44 58 L 17 93 03/09/19 07:25 98.1 F 58 L 58 L 17 99/64 L 92 03/09/19 02:37 97.7 F 60 16 98/65 L 94 03/09/19 01:40 62 18 92 Diagnostic Findings Rhythm on the monitor was sinus throughout. (1) Respiratory failure with hypoxia and hypercapnia Chronicity: unspecified Qualified Code(s): J96.91 - Respiratory failure, unspecified with hypoxia; J96.92 - Respiratory failure, unspecified with hypercapnia
[2019-03-09 12:59] LABS: Base Excess ABG 4.5 mEq/L (-9-1.8); HCO3 ABG 34 mmol/L (19-24); Oxygen Saturation ABG 92.7 % (90-95); PCO2 ABG 73 mmHg (35-46); PO2 ABG 65 mm/Hg (80-95); pH ABG 7.29 (7.35-7.45)
[2019-03-09 13:03] LABS: Allen Test Pos (Pos)
[2019-03-09 13:11] LABS: Base Excess VBG 1.3 mEq/L; Oxygen Saturation VBG 93.2 %; pH VBG 7.31 (7.36-7.41)
[2019-03-09 13:25] LABS: BUN Creatinine Ratio 37.1 (10-20); Calcium 8.7 mg/dl (8.5-10.1); Creatinine Clr Calc Pharmacy 63.5 ml/min; Est GFR (African American) 60.2; Potassium 5.2 mmol/L (3.5-5.1)
[2019-03-09] MEDS ORDERED: LORazepam 0.5 MG/1 ML VIAL IV STA (16:08)
[2019-03-09] MEDS: ATORVASTATIN 40 MG TAB PO SCH (20:09)
[2019-03-09] MEDS: AZITHROMYCIN 250 MG TAB PO SCH (20:09)
[2019-03-09] MEDS: methylPREDNISolone 40 MG in SYRINGE 0 ML IV SCH (20:09)
[2019-03-09] MEDS ORDERED: methylPREDNISolone 60 MG in SYRINGE 0 ML IV SCH (21:00)
[2019-03-10] MEDS: ALBUT/IPRATROP 3MG/0.5MG NEB 3 ML VIAL NEB SCH ×4 (07:09→19:11)
--- NOTE | 2019-03-10 07:13 | Cardiology Progress Note ---
Date of Service March 10, 2019 Assessment & Plan (1) Respiratory failure with hypoxia and hypercapnia: Patient with acute on chronic respiratory insufficiency which appears to be primarily noncardiac. He is back on his diuretic (furosemide 40 mg BID) and appears euvolemic currently. I/O approximately even. Continue current diuretic dose and adjust to keep I/O even. (2) Ischemic cardiomyopathy: Echocardiogram this admission is quite technically limited, but showed grossly normal LV systolic function with no obvious major wall motion abnormalities. No ECG changes or classic anginal-type chest pain to suggest acute event. Continue atenolol, aspirin, and statin. He is fully anticoagulated with rivaroxaban, therefore no role for heparin. Main treatment will be management of his hypoxia/respiratory failure. (3) CAD (coronary artery disease): (4) CKD (chronic kidney disease), stage III: (5) Hypertension: BP low normal on low-dose atenolol. He remains a bit bradycardic given his physiologic status (borderline compensated respiratory insufficiency), therefore would be reasonable to discontinue atenolol if hypotension recurs or bradycardia persists. (6) Diabetes: (7) Atrial fibrillation: Currently in sinus rhythm on sotalol (QTc OK), anticoagulated with rivaroxaban. Continue to monitor rhythm. (8) Ventricular tachycardia, nonsustained: Asymptomatic. Nonspecific finding in cardiomyopathy patient. Check AM electrolytes. No change in management. OK to go off monitor for shower. Subjective Patient cooperative and comfortable this morning. He denies any chest pain, dyspnea rest, or other symptoms currently. Physical Exam Physical Exam: No distress, appears comfortable. Skin: No unusual lesions or ecchymosis. HEENT: Unremarkable. Neck: Jugular venous pulse just above the clavicle with patient lying at 30, no carotid bruits. Lungs: Markedly decrease breath sounds with poor but now audible air flow, no obvious wheezing or crackles. No accessory muscle use, intercostal retraction, or nasal flaring. Cardiac: Regular rhythm with faint heart tones and no obvious murmur or gallop. Abdomen: Benign. Extremities: Nontender without significant edema. Intact peripheral pulses. Neurologic: Answers questions appropriately, grossly nonfocal. Results & Data Vital Signs (Past 12 Hours) Vital Signs Temp Pulse Pulse Resp BP BP Pulse Ox 03/10/19 07:10 63 17 97 03/10/19 07:09 63 17 97 03/10/19 03:14 98.2 F 68 16 126/69 94 03/10/19 00:00 98.6 F 60 16 107/64 93 03/09/19 23:40 62 03/09/19 23:05 60 17 95 03/09/19 19:48 76 H 95 03/09/19 19:45 76 20 95 Diagnostic Findings Monitor with NSR, one 8 beat run of VT (asymptomatic). (1) Respiratory failure with hypoxia and hypercapnia Chronicity: unspecified Qualified Code(s): J96.91 - Respiratory failure, unspecified with hypoxia; J96.92 - Respiratory failure, unspecified with hypercapnia
[2019-03-10] MEDS: SOTALOL HCL 80 MG TAB PO SCH ×2 (08:41→20:21)
[2019-03-10] MEDS: INSULIN ASPART 100 UNITS/ML 3 ML PEN SC SCH ×4 (08:41→20:21)
[2019-03-10] MEDS: methylPREDNISolone 40 MG in SYRINGE 0 ML IV SCH ×3 (08:42→17:06)
[2019-03-10] MEDS: NICOTINE 21 MG/24 HR TDSY TD SCH (08:42)
[2019-03-10] MEDS: ASPIRIN 81 MG ECTAB PO SCH (08:42)
[2019-03-10] MEDS: ATENOLOL 25 MG TABLET PO SCH (08:42)
[2019-03-10] MEDS: RIVAROXABAN 20 MG TAB PO SCH (08:43)
[2019-03-10 09:23] LABS: Hematocrit (blood only) 49.2 % (42-52); Hemoglobin 15.3 g/dL (14.0-18.0); Mean Corpuscular Hgb Conc 31.1 g/dL (32-36); Mean Platelet Volume 11.5 fL (7.4-10.4); Platelet Count 187 K/uL (130-400); RDW Coefficient of Variation 14.6 % (11.5-14.5); RDW Standard Deviation 51.4 fL (36.4-46.3); Red Blood Count 5.07 M/uL (4.7-6.1); White Blood Count 19.97 K/uL (4.8-10.8)
[2019-03-10 09:27] LABS: Allen Test Pos (Pos); Base Excess ABG 5.5 mEq/L (-9-1.8); HCO3 ABG 35 mmol/L (19-24); Oxygen Saturation ABG 92.5 % (90-95); PCO2 ABG 73 mmHg (35-46); PO2 ABG 64 mm/Hg (80-95)
[2019-03-10 09:48] LABS: Bilirubin,Total 0.8 mg/dl (0.2-1); Calcium 8.2 mg/dl (8.5-10.1); Creatinine Clr Calc Pharmacy 64.9 ml/min; Est GFR (African American) 56.7; Est GFR (Non-African American) 48.9; Globulin 3.1 gm/dl (2.5-4.0); Total Protein 6.1 gm/dl (6.4-8.2)
[2019-03-10] MEDS ORDERED: FUROSEMIDE 40 MG TAB PO ONE (10:39)
[2019-03-10] MEDS ORDERED: LORazepam 0.5 MG/1 ML VIAL IV STA (10:58)
[2019-03-10 11:34] LABS: Potassium 5.2 mmol/L (3.5-5.1)
--- NOTE | 2019-03-10 12:22 | Pulmonology Progress Note ---
Date of Service March 10, 2019 Assessment & Plan (1) COPD (chronic obstructive pulmonary disease): Impression: 1. Acute exacerbation of COPD, gold level cannot be determined as the patient does not have PFT, grade A. 2. Acute on chronic hypercapnic respiratory failure. 3. Cor pulmonale. 4. 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 5. Altered mental status secondary to hypercapnia. Plan: 1. Increase Solu-Medrol to 40 mg IV every 6 hours. 2. Continue bronchodilators. 3. Avoid morphine, histaminergic. 4. Avoid Ativan due to altered mental status. Given his respiratory drive with CO2 retention. 5. Continue his cardiac medications. 6. The patient will benefit from AVAP at home, consult transplant case manager to initiate the process for outpatient trilogy. 7. The patient likely will need also oxygen at home. 8. The patient should be followed as an outpatient in the pulmonary clinic. He would like to couple his pulmonary appointment with his cardiology appointment with Dr. Marte. 9. Start the patient on long-acting beta agonist. 10. The patient wants to go home but I advised him to stay in the hospital until the above issues be resolved. 11. Discussed in details with the family at the bedside. Thank you, will follow. Subjective The patient is feeling better, more awake, following commands, he wants to go home, I had a long discussion with him in front of his daughter who was at the bedside and instruct him to stay in the hospital until all his respiratory issues has been addressed. He denies any events overnight. No cough no sputum production, no hemoptysis, he still have dyspnea on exertion but he has not been out of the bed yet. Review of Systems Review of Systems: Otherwise review of system including 10 systems was unremarkable except for the above. Physical Exam Physical Exam: Vital signs are stable, 94% on 4 L, morbidly obese, S1-S2, distant and diminished breath sounds bilaterally, abdomen is benign, edema in the periphery, no oral thrush. Neurologically he is more intact and awake following commands and oriented. He is not confused today. Results & Data Vital Signs (Past 12 Hours) Vital Signs Temp Pulse Pulse Resp BP BP Pulse Ox 03/10/19 11:05 63 18 94 03/10/19 07:52 36.4 C L 63 19 133/69 94 03/10/19 07:10 63 17 97 03/10/19 07:09 63 17 97 03/10/19 03:14 36.8 C 68 16 126/69 94 Laboratory Results Labs were reviewed which showed leukocytosis likely from steroids, left shift but no bandemia. His pH is recovering. BMP is also stable. His glucose is elevated, partially due to steroids. Diagnostic Findings No new imaging.
--- NOTE | 2019-03-10 13:23 | Hospitalist Progress Note ---
Date of Service March 10, 2019 Assessment & Plan (1) Respiratory failure with hypoxia and hypercapnia: likely has chronic hypoxia and chronic hypercapnia, currently with acute on chronic failure patient is always short of breath, presented with CO2 in the 70's with pH 7.3 likely has chronic CO2 level in the 60's oxygen level is stable on 4L, 90% Dr. Edwards following, appreciate his recommendations he would like to arrange for Trilogy for patient, case management consulted patient very resistant to staying, threatening to leave AMA every day discussed that we will get the two step tomorrow morning, it is ordered case management can arrange for home oxygen will start process of getting Trilogy but not sure how fast it could be delivered he has a home CPAP but he does not use it patient would not want to stay longer than 7/2 in the morning he may leave before home Trilogy set up (2) Heart failure with preserved ejection fraction: edema in legs, pitting has not really changed continue Lasix 40mg PO BID, this was his home dose echo 03/08 showed grade I diastolic dysfunction, normal EF likely has some degree of pulmonary HTN given long standing lung disease no evidence of acute heart failure at this time (3) Exertional angina: admits to chest pain and pressure on exertion improves with rest likely with CAD given his h/o smoking and diabetes troponin elevated but all consistent at 0.4 and 0.5 would not consider this an NSTEMI as he has no active chest pain consult cardiology no wall motion changes seen on echo discussed with Dr. Sandoval, no plans for further cardiac testing while here (4) COPD exacerbation: continue Solu Medrol 40 q6 today, change to Prednisone 50mg daily tomorrow morning would plan for prolonged taper on discharge continue with Duoneb QID on Azithromycin daily, would be completed on 03/12 start on Advair and Spiriva would need to prescribe these on discharge ensure that patient has Albuterol would likely benefit from home nebulizer as well (5) Anxiety: both anxious and angry, very abrasive, threatening at times hates being in the hospital, displays a general mistrust of everyone here feels like he is being "scammed" wants to leave the hospital AMA but can be talked down by family getting by with using a low dose of Ativan PRN just to take edge off and help him sleep using 0.5mg IV, generally once, maybe twice a day this helps him relax and he sleeps, more compliant with treatment which he needs (6) Hyperkalemia: mild at 5.2 resuming Lasix 40mg BID today which will help lower the K repeat later today (7) Hypertension: BP stable continue home regimen with Atenolol Lasix resumed (8) Diabetes: diabetic diet and Novolog SS hyperglycemia with the steroids tightened correction factor and carb ratio patient would not take Lantus at home if prescribed (9) Atrial fibrillation: sinus rhythm on the monitor continue on Sotalol and Atenolol anticoagulated on Xarelto (10) CKD (chronic kidney disease), stage III: Cr is stable between 1.3 and 1.6 repeat tomorrow (11) Encounter for smoking cessation counseling: patient has been smoking since age 12 said that he is not interested in quiting told him that if he quits he could preserve what lung function he still has he said "everyone dies eventually, I'm not gonna quit" (12) HLD (hyperlipidemia): continue statin therapy (13) DVT prophylaxis: on Xarelto Plan: case management consulted to help arrange for home oxygen and home Trilogy 2 step ordered for tomorrow to help get home oxygen set up patient very anxious and eager to leave hospital, threatening to leave AMA daily family staying at the bedside which has helped on discharge he would need Prednisone 50mg with prolonged taper, Azithromycin until 03/12 would need Advair, Spiriva, likely benefit from home nebulizer and Duoneb should have pulmonary follow up, would need outpatient PFT since this has never been done should have cardiology follow up for afib and chronic heart failure with preserved EF patient willing to stay until morning on 03/12, understands that oxygen and trilogy need set up Subjective patient is breathing a lot easier today, saturations 90% on 4L he is compliant with the BIPAP appreciate recommendations from Dr. Edwards, recommends Trilogy at home for hypercapnia patient incredibly anxious, wants to leave the hospital family helping to calm him and keep him here wants to know how long he will be here explained that we need to get 2 step and need to set up Trilogy likely not by tomorrow he wants to leave by Monday, explained that Trilogy may not be set up by then, he says he does not care reviewed labs, WBC up to 19k likely from steroids as he has no fever and no cough Cr is stable at 1.4, K is up slightly at 5.2 but resuming Lasix today so that will help ABG shows that there really is not much progress with CO2 levels, pH is 7.3 and CO2 70, likely baseline is 60-65 daughter in law at the bedside, she was updated Review of Systems Review of Systems: All systems reviewed & are unremarkable except as noted in HPI & below Constitutional: no fever, no chills, no sweats, no fatigue and no weakness Respiratory: + dyspnea and + dyspnea on exertion; no cough and no wheezing Cardiovascular: + dyspnea, + dyspnea on exertion and + edema (at baseline, right > left); no chest pain Gastrointestinal: no abdominal pain, no nausea, no vomiting, no constipation and no diarrhea/loose stools Psychiatric: + irritability and + anxiety Physical Exam Constitutional: WD/WN, vitals as above no acute distress Eyes: PERRL, conjunctivae normal, anicteric sclerae ENMT: external ear and nose normal, oropharynx normal (red discoloration of the nose) Neck: trachea midline, no thyromegaly Respiratory: normal respiratory effort; no respiratory distress Auscultation: + diminished lung sounds (bilaterally) Cardiovascular: Rate/Rhythm: regular rate and regular rhythm Heart Sounds: normal S1 and normal S2; no murmur Vessels: no JVD Extremities: normal capillary refill and + edema (pitting to knee bilaterally) Gastrointestinal (Abdomen): normal bowel sounds, soft, nontender, no hepatosplenomegaly Musculoskeletal: Head/Neck/Chest: normocephalic and head atraumatic Extremities: extremities normal to inspection, strength 5/5 throughout, + cyanosis and + clubbing Skin: no rashes, warm and dry Neurologic: patellar DTR's 2+ bilat, sensation intact and PERRL, EOMI, accommodation nl, no face palsy, no dysarthria Psychiatric: Orientation: alert and oriented x 3 Affect: + irritable affect Mood: + depressed mood Lymphatic: no cervical or axillary lymphadenopathy Results & Data Vital Signs (Past 12 Hours) Vital Signs Temp Pulse Pulse Resp BP BP Pulse Ox 03/10/19 11:05 63 18 94 03/10/19 07:52 36.4 C L 63 19 133/69 94 03/10/19 07:10 63 17 97 03/10/19 07:09 63 17 97 03/10/19 03:14 36.8 C 68 16 126/69 94 Laboratory Results Laboratory Results - last 24 hr 03/09/19 03/09/19 03/09/19 16:35 20:19 23:56 WBC RBC Hgb Hct MCV MCH MCHC RDW Std Deviation RDW Coeff of Conrad Plt Count MPV ABG pH ABG pCO2 ABG pO2 ABG HCO3 ABG O2 Saturation ABG Base Excess Johny Test Barometric Pressure Oxygen Given Sodium Potassium Chloride Carbon Dioxide Anion Gap BUN Creatinine Est Cr Clr Drug Dosing Est GFR ( Amer) Est GFR (Non-Af Amer) BUN/Creatinine Ratio Glucose POC Glucose 270 H 179 H 163 H Calcium Total Bilirubin AST ALT Alkaline Phosphatase Total Protein Albumin Globulin Albumin/Globulin Ratio Specimen Hemolysis 03/10/19 03/10/19 03/10/19 07:25 09:04 09:04 WBC 19.97 H RBC 5.07 Hgb 15.3 Hct 49.2 MCV 97.0 MCH 30.2 MCHC 31.1 L RDW Std Deviation 51.4 H RDW Coeff of Conrad 14.6 H Plt Count 187 MPV 11.5 H ABG pH ABG pCO2 ABG pO2 ABG HCO3 ABG O2 Saturation ABG Base Excess Johny Test Barometric Pressure Oxygen Given Sodium 135 L Potassium Chloride 96 L Carbon Dioxide 36 H Anion Gap 3.0 BUN 56 H Creatinine 1.43 H Est Cr Clr Drug Dosing 64.9 Est GFR ( Amer) 56.7 Est GFR (Non-Af Amer) 48.9 BUN/Creatinine Ratio 39.0 H Glucose 260 H POC Glucose 226 H Calcium 8.2 L Total Bilirubin 0.8 AST ALT 17 Alkaline Phosphatase 72 Total Protein 6.1 L Albumin 3.0 L Globulin 3.1 Albumin/Globulin Ratio 1.0 Specimen Hemolysis Cancelled 03/10/19 03/10/19 03/10/19 09:12 10:31 11:12 WBC RBC Hgb Hct MCV MCH MCHC RDW Std Deviation RDW Coeff of Conrad Plt Count MPV ABG pH 7.30 L ABG pCO2 73 H ABG pO2 64 L ABG HCO3 35 H ABG O2 Saturation 92.5 ABG Base Excess 5.5 H Johny Test Pos Barometric Pressure 730.1 Oxygen Given 5 L Sodium Potassium Cancelled 5.2 H Chloride Carbon Dioxide Anion Gap BUN Creatinine Est Cr Clr Drug Dosing Est GFR ( Amer) Est GFR (Non-Af Amer) BUN/Creatinine Ratio Glucose POC Glucose Calcium Total Bilirubin AST Cancelled 11 L ALT Alkaline Phosphatase Total Protein Albumin Globulin Albumin/Globulin Ratio Specimen Hemolysis 03/10/19 11:30 WBC RBC Hgb Hct MCV MCH MCHC RDW Std Deviation RDW Coeff of Conrad Plt Count MPV ABG pH ABG pCO2 ABG pO2 ABG HCO3 ABG O2 Saturation ABG Base Excess Johny Test Barometric Pressure Oxygen Given Sodium Potassium Chloride Carbon Dioxide Anion Gap BUN Creatinine Est Cr Clr Drug Dosing Est GFR ( Amer) Est GFR (Non-Af Amer) BUN/Creatinine Ratio Glucose POC Glucose 242 H Calcium Total Bilirubin AST ALT Alkaline Phosphatase Total Protein Albumin Globulin Albumin/Globulin Ratio Specimen Hemolysis Medications Administered Current Inpatient Medications Al Hydrox/Mg Hydrox/Simethicone (Maalox) 15 ml PO Q4H PRN PRN Reason: Dyspepsia Stop: 04/06/19 19:04 Albuterol (Duoneb) 3 ml NEB QIDR JABARI Stop: 04/06/19 19:59 Last Admin: 03/10/19 11:04 Dose: 3 ml Documented by: Albuterol (Ventolin 0.083% 2.5mg/3ml) 2.5 mg NEB Q4H PRN PRN Reason: Shortness Of Breath Stop: 04/06/19 19:04 Aspirin (Ecotrin Ectab) 81 mg PO DAILY JABARI Stop: 04/07/19 08:59 Last Admin: 03/10/19 08:42 Dose: 81 mg Documented by: Atenolol (Tenormin) 12.5 mg PO DAILY JABARI Stop: 04/07/19 08:59 Last Admin: 03/10/19 08:42 Dose: 12.5 mg Documented by: Atorvastatin Calcium (Lipitor) 40 mg PO HS [facility] Stop: 04/06/19 20:59 Last Admin: 03/09/19 20:09 Dose: 40 mg Documented by: Azithromycin (Zithromax) 500 mg PO Q24H JABARI; Protocol Stop: 03/13/19 23:59 Last Admin: 03/09/19 20:09 Dose: 500 mg Documented by: Dextrose (Dextrose 50%) 25 - 50 ml IV UD PRN; Protocol PRN Reason: Hypoglycemia Protocol Stop: 04/07/19 01:44 Furosemide (Lasix) 40 mg PO [id number] JABARI Stop: 04/09/19 16:59 Glucagon (Glucagen) 1 mg SQ UD PRN; Protocol PRN Reason: Hypoglycemia Protocol Stop: 04/07/19 01:44 Glucose (Glucose 40%) 15 - 30 gm PO UD PRN; Protocol PRN Reason: Hypoglycemia Protocol Stop: 04/07/19 01:44 Glucose (Dex4 Glucose) 4 - 8 tabs PO UD PRN; Protocol PRN Reason: Hypoglycemia Protocol Stop: 04/07/19 01:44 Haloperidol Lactate (Haldol) 5 mg IM Q4H PRN PRN Reason: Agitation Stop: 04/06/19 22:37 Methylprednisolone 40 mg/ (Syringe) 0.64 mls @ 1.5 mls/min IV Q6 JABAIR Stop: 03/10/19 23:59 Last Admin: 03/10/19 11:50 Dose: 1.5 mls/min Documented by: Insulin Aspart (Novolog Flexpen) 0 units SC ACHS [facility] Stop: 04/07/19 07:29 Last Admin: 03/10/19 11:51 Dose: 19 units Documented by: Magnesium Hydroxide (Milk Of Magnesia) 30 ml PO Q12H PRN PRN Reason: Constipation Stop: 04/06/19 19:04 Miscellaneous (Carbohydrates For Hypoglycemia) 15 - 30 gm PO UD PRN PRN Reason: Hypoglycemia Treatment Stop: 04/07/19 01:44 Miscellaneous (Remove Nicoderm Patch) 1 ea N/A HS [facility] Stop: 04/07/19 22:59 Last Admin: 03/09/19 20:16 Dose: 1 ea Documented by: Nicotine (Nicoderm Cq) 21 mg TD QAM [facility] Stop: 04/07/19 18:59 Last Admin: 03/10/19 08:42 Dose: 21 mg Documented by: Polyethylene Glycol (Miralax Powder Packet) 17 gm PO DAILY PRN PRN Reason: Constipation Stop: 04/06/19 19:04 Prednisone (Prednisone) 50 mg PO QAM [facility] Stop: 04/10/19 08:59 Rivaroxaban (Xarelto) 20 mg PO DAILY [facility] Stop: 04/07/19 08:59 Last Admin: 03/10/19 08:43 Dose: 20 mg Documented by: Fluticasone/Salmeterol (Advair Diskus 250/50) 1 puffs INH BID JABARI Stop: 04/09/19 20:59 Sotalol HCl (Betapace) 160 mg PO BID JABARI Stop: 04/06/19 20:59 Last Admin: 03/10/19 08:41 Dose: 160 mg Documented by: Tiotropium [place] (Spiriva) 1 puffs INH QAM JABARI Stop: 04/10/19 08:59 Zolpidem Tartrate (Ambien) 5 mg PO HS PRN PRN Reason: Sleep Stop: 04/06/19 19:04 PG Care Time/CCT Total # of Minutes Spent Total Time Spent with Patient: Total time spent is greater than 50% in coordination of care (as documented) at patient's floor/unit and/or counseling patient: (1) Respiratory failure with hypoxia and hypercapnia Chronicity: unspecified Qualified Code(s): J96.91 - Respiratory failure, unspecified with hypoxia; J96.92 - Respiratory failure, unspecified with hype rcapnia
[2019-03-10] MEDS: FUROSEMIDE 40 MG TAB PO SCH (17:05)
[2019-03-10] MEDS: FLUTICASONE/SALMETEROL 250/50 (ADVAIR) 14 PUFF/1 INHALER INH SCH (20:20)
[2019-03-10] MEDS: AZITHROMYCIN 250 MG TAB PO SCH (20:21)
[2019-03-10] MEDS: ATORVASTATIN 40 MG TAB PO SCH (20:21)
[2019-03-11 06:34] LABS: Hematocrit (blood only) 49.8 % (42-52); Hemoglobin 15.6 g/dL (14.0-18.0); Immature Granulocytes # (auto) 0.04 K/uL (0.00-0.02); Immature Granulocytes % (auto) 0.2 %; Lymphocytes # (auto) 0.76 K/uL (1.2-3.4); Lymphocytes % (auto) 4.5 %; Mean Corpuscular Hgb Conc 31.3 g/dL (32-36); Mean Corpuscular Volume 95.8 fL (80-100); Mean Platelet Volume 11.2 fL (7.4-10.4); Monocytes # (auto) 1.73 K/uL (0.11-0.59); Monocytes % (auto) 10.1 %; Neutrophils # (auto) 14.52 K/uL (1.4-6.5); Neutrophils % (auto) 85.2 %; Platelet Count 179 K/uL (130-400); RDW Coefficient of Variation 14.3 % (11.5-14.5); White Blood Count 17.05 K/uL (4.8-10.8)
[2019-03-11 06:42] LABS: Base Excess ABG 9.3 mEq/L (-9-1.8); HCO3 ABG 38 mmol/L (19-24); Oxygen Saturation ABG 94.7 % (90-95); PCO2 ABG 66 mmHg (35-46); PO2 ABG 74 mm/Hg (80-95); pH ABG 7.37 (7.35-7.45)
[2019-03-11 06:48] LABS: Allen Test Pos (Pos)
[2019-03-11] MEDS: ALBUT/IPRATROP 3MG/0.5MG NEB 3 ML VIAL NEB SCH ×4 (06:57→19:14)
[2019-03-11 07:09] LABS: BUN Creatinine Ratio 35.7 (10-20); Calcium 8.4 mg/dl (8.5-10.1); Creatinine Clr Calc Pharmacy 72.8 ml/min; Est GFR (African American) 65.4; Est GFR (Non-African American) 56.5; Potassium 4.9 mmol/L (3.5-5.1)
[2019-03-11] MEDS: INSULIN ASPART 100 UNITS/ML 3 ML PEN SC SCH ×4 (07:54→22:01)
[2019-03-11] MEDS: FLUTICASONE/SALMETEROL 250/50 (ADVAIR) 14 PUFF/1 INHALER INH SCH ×2 (07:55→21:56)
[2019-03-11] MEDS: FUROSEMIDE 40 MG TAB PO SCH ×2 (07:55→17:11)
[2019-03-11] MEDS: ATENOLOL 25 MG TABLET PO SCH (07:55)
[2019-03-11] MEDS: RIVAROXABAN 20 MG TAB PO SCH (07:55)
[2019-03-11] MEDS: SOTALOL HCL 80 MG TAB PO SCH ×2 (07:56→21:57)
[2019-03-11] MEDS: NICOTINE 21 MG/24 HR TDSY TD SCH (07:56)
[2019-03-11] MEDS: predniSONE 50 MG TAB PO SCH (07:56)
[2019-03-11] MEDS: ASPIRIN 81 MG ECTAB PO SCH (07:56)
[2019-03-11] MEDS: TIOTROPIUM BROMIDE 5 PUFF/90 MCG INH INH SCH (07:58)
--- NOTE | 2019-03-11 10:29 | Cardiology Progress Note ---
Date of Service March 11, 2019 Assessment & Plan (1) Respiratory failure with hypoxia and hypercapnia: 2. COPD exacerbation 3. Chronic, heart failure preserved ejection fraction 4. Paroxysmal atrial fibrillation 5. Nonobstructive coronary artery disease 6. Nonsustained VT 7. Diabetes 8. Stage III CKD 9. Altered mental status Respiratory status stable Hemodynamically stable, remains in sinus rhythm. No recurrent NSVT On exam well-perfused and appears euvolemic Continue home maintenance diuretics, Lasix 40 mg twice daily Continue home sotalol, atenolol Long-term anticoagulation with Xarelto Continue home aspirin, atorvastatin From a cardiac standpoint okay for discharge when pulmonary issues stable. Subjective Patient anxious to be discharged this morning. Denies shortness of breath off Bipap since around 5 AM No chest pain. Tele reviewed - NSVT yesterday AM, no events since. Review of Systems Review of Systems: All systems reviewed & are unremarkable except as noted in HPI & below Physical Exam Physical Exam: General: Comfortable, no acute distress, nasal cannula in place Eyes: Sclerae anicteric HENT: Oropharynx clear mucous membranes moist Neck: No JVD Lungs: Decreased breath sounds at bases, prolonged expiratory, no crackles Cardiac: Regular rate and rhythm, no murmurs Abdomen: Soft, nontender, nondistended, positive bowel sounds. Extremities: Well perfused, no peripheral edema Skin: No rashes or lesions. Neuro: Nonfocal Psych: Alert and oriented Results & Data Vital Signs (Past 12 Hours) Vital Signs Temp Pulse Pulse Resp BP Pulse Ox 03/11/19 06:57 86 16 94 03/11/19 06:52 36.9 C 64 18 113/73 94 03/11/19 04:30 57 L 19 93 03/11/19 04:08 36.8 C 56 L 16 114/64 94 03/11/19 00:01 58 L 03/11/19 00:00 36.8 C 56 L 16 127/68 91 03/10/19 23:15 62 20 92 (1) Respiratory failure with hypoxia and hypercapnia Chronicity: unspecified Qualified Code(s): J96.91 - Respiratory failure, unspecified with hypoxia; J96.92 - Respiratory failure, unspecified with hypercapnia
--- NOTE | 2019-03-11 11:23 | Pulmonology Progress Note ---
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 per family more confused when he is off bipap for a few hours continue steroid taper continue albuterol continue fluticasone/salmetrol continue tiotropium would benefit from trilogy with AVAP at home eval for home o2 pt wants to go home but if getting confused and hypoxic off bipap may not be ready yet need close outpatient followup (2) COPD exacerbation: Subjective says breathing feels ok. desatted when off the bipap sat 92% on 40% now Physical Exam Physical Exam: Constitutional: Comfortable NAD HEENT: normocephalic atraumatic. MMM CV: RRR nl s1,s2 no murmurs rubs or gallops Lungs: decreased bilaterally. not wheezing now no accessory muscle use Abd: soft nontender nondistended. normal bowel sounds Ext: no edema. no cyanosis, no clubbing Skin: warm dry Neuro: alert and oriented. moving all extremities Psych: normal mood and affect Results & Data Vital Signs (Past 12 Hours) Vital Signs Temp Pulse Pulse Resp BP Pulse Ox 03/11/19 06:57 86 16 94 03/11/19 06:52 36.9 C 64 18 113/73 94 03/11/19 04:30 57 L 19 93 03/11/19 04:08 36.8 C 56 L 16 114/64 94 03/11/19 00:01 58 L 03/11/19 00:00 36.8 C 56 L 16 127/68 91 Laboratory Results Laboratory Results - last 24 hr 03/10/19 03/10/19 03/10/19 11:12 11:30 16:24 WBC RBC Hgb Hct MCV MCH MCHC RDW Std Deviation RDW Coeff of Conrad Plt Count MPV Immature Gran % (Auto) Neut % (Auto) Lymph % (Auto) [place] % (Auto) Eos % (Auto) Baso % (Auto) Immature Gran # (Auto) Neut # (Auto) Lymph # (Auto) [place] # (Auto) Eos # (Auto) Baso # (Auto) ABG pH ABG pCO2 ABG pO2 ABG HCO3 ABG O2 Saturation ABG Base Excess Johny Test Barometric Pressure Oxygen Given Sodium Potassium 5.2 H Chloride Carbon Dioxide Anion Gap BUN Creatinine Est Cr Clr Drug Dosing Est GFR ( Amer) Est GFR (Non-Af Amer) BUN/Creatinine Ratio Glucose POC Glucose 242 H 277 H Calcium AST 11 L 03/10/19 03/11/19 03/11/19 20:14 06:25 06:25 WBC 17.05 H RBC 5.20 Hgb 15.6 Hct 49.8 MCV 95.8 MCH 30.0 MCHC 31.3 L RDW Std Deviation 50.0 H RDW Coeff of Conrad 14.3 Plt Count 179 MPV 11.2 H Immature Gran % (Auto) 0.2 Neut % (Auto) 85.2 Lymph % (Auto) 4.5 [place] % (Auto) 10.1 Eos % (Auto) 0.0 Baso % (Auto) 0.0 Immature Gran # (Auto) 0.04 H Neut # (Auto) 14.52 H Lymph # (Auto) 0.76 L [place] # (Auto) 1.73 H Eos # (Auto) 0.00 Baso # (Auto) 0.00 ABG pH ABG pCO2 ABG pO2 ABG HCO3 ABG O2 Saturation ABG Base Excess Johny Test Barometric Pressure Oxygen Given Sodium 135 L Potassium 4.9 Chloride 94 L Carbon Dioxide 38 H Anion Gap 2.0 L BUN 45 H Creatinine 1.27 Est Cr Clr Drug Dosing 72.8 Est GFR ( Amer) 65.4 Est GFR (Non-Af Amer) 56.5 BUN/Creatinine Ratio 35.7 H Glucose 205 H POC Glucose 277 H Calcium 8.4 L AST 03/11/19 03/11/19 06:25 07:23 WBC RBC Hgb Hct MCV MCH MCHC RDW Std Deviation RDW Coeff of Conrad Plt Count MPV Immature Gran % (Auto) Neut % (Auto) Lymph % (Auto) [place] % (Auto) Eos % (Auto) Baso % (Auto) Immature Gran # (Auto) Neut # (Auto) Lymph # (Auto) [place] # (Auto) Eos # (Auto) Baso # (Auto) ABG pH 7.37 ABG pCO2 66 H ABG pO2 74 L ABG HCO3 38 H ABG O2 Saturation 94.7 ABG Base Excess 9.3 H Johny Test Pos Barometric Pressure 732.4 Oxygen Given 4L Sodium Potassium Chloride Carbon Dioxide Anion Gap BUN Creatinine Est Cr Clr Drug Dosing Est GFR ( Amer) Est GFR (Non-Af Amer) BUN/Creatinine Ratio Glucose POC Glucose 187 H Calcium AST
--- NOTE | 2019-03-11 15:28 | Hospitalist Progress Note ---
Date of Service March 11, 2019 Assessment & Plan (1) Respiratory failure with hypoxia and hypercapnia: likely has chronic hypoxia and chronic hypercapnia, currently with acute on chronic failure patient is always short of breath, presented with CO2 in the 70's with pH 7.3 likely has chronic CO2 level in the 60's oxygen level is stable on 4L, 90% Pulm following, appreciate his recommendations he would like to arrange for Trilogy for patient, case management consulted- wrote Rx for this today Due to chronic respiratory failure consequent to COPD, patient now requires a Non-Invasive Home Ventilator. Bi-level therapy with and without a rate would be ineffective, as patient requires a volume targeted mode. Ventilation is required to decrease the work of breathing and improve pulmonary status. Interruption of ventilator support would lead to decline of health status. patient very resistant to staying, threatening to leave AMA every day case management can arrange for home oxygen-needs 3LNC at rest and 6LNC with exertion will start process of getting Trilogy but not sure how fast it could be delivered he has a home CPAP but he does not use it patient would not want to stay longer than 7/2 in the morning he may leave before home Trilogy set up but family says they will not allow this to happen (2) Heart failure with preserved ejection fraction: edema in legs seemed to be improved on my exam from previous has not really changed continue Lasix 40mg PO BID, this was his home dose echo 03/08 showed grade I diastolic dysfunction, normal EF likely has some degree of pulmonary HTN given long standing lung disease no evidence of acute heart failure at this time (3) Exertional angina: admits to chest pain and pressure on exertion improves with rest likely with CAD given his h/o smoking and diabetes troponin elevated but all consistent at 0.4 and 0.5 would not consider this an NSTEMI as he has no active chest pain consult cardiology no wall motion changes seen on echo discussed with Dr. Sandoval, no plans for further cardiac testing while here (4) COPD exacerbation: Received IV Solu Medrol 40 q6 and then changed to Prednisone 50mg daily on 03/11 would plan for prolonged taper on discharge continue with Duoneb QID on Azithromycin daily, would be completed on 03/12 start on Advair and Spiriva would need to prescribe these on discharge ensure that patient has Albuterol would likely benefit from home nebulizer as well-ordered through CM (5) Anxiety: both anxious and angry, very abrasive, threatening at times hates being in the hospital, displays a general mistrust of everyone here feels like he is being "scammed" wants to leave the hospital AMA but can be talked down by family getting by with using a low dose of Ativan PRN just to take edge off and help him sleep using 0.5mg IV, generally once, maybe twice a day this helps him relax and he sleeps, more compliant with treatment which he needs (6) Hyperkalemia: Resolved with restarting lasix -continue Lasix 40mg BID (7) Hypertension: BP stable continue home regimen with Atenolol Lasix resumed (8) Diabetes: diabetic diet and Novolog SS hyperglycemia with the steroids tightened correction factor and carb ratio patient would not take Lantus at home if prescribed (9) Atrial fibrillation: sinus rhythm on the monitor continue on Sotalol and Atenolol anticoagulated on Xarelto (10) CKD (chronic kidney disease), stage III: Cr is stable between 1.3 and 1.6 -follow BMP (11) Encounter for smoking cessation counseling: patient has been smoking since age 12 said that he is not interested in quiting told him that if he quits he could preserve what lung function he still has he said "everyone dies eventually, I'm not gonna quit" (12) HLD (hyperlipidemia): continue statin therapy (13) DVT prophylaxis: on Xarelto Plan: case management consulted to help arrange for home oxygen and home Trilogy patient very anxious and eager to leave hospital, threatening to leave AMA d aily family staying at the bedside which has helped on discharge he would need Prednisone 50mg with prolonged taper, Azithromycin until 03/12 would need Advair, Spiriva, likely benefit from home nebulizer and Duoneb should have pulmonary follow up, would need outpatient PFT since this has never been done should have cardiology follow up for afib and chronic heart failure with preserved EF patient willing to stay until morning on 03/12, understands that oxygen and trilogy need set up Subjective Pt turned blue after getting upset this AM as per RN and had to be placed on BiPAP for most of the day. Family reports he starts hallucinating after being off the BiPAP for about 6 hours. He tells me he is tired of being in the hospital, but family reports they will not take him home until he gets his Trilogy set up at home. Review of Systems Review of Systems: All systems reviewed & are unremarkable except as noted in HPI & below (denies CP or SOB, denies abd pain, has not had a BM in several days) Physical Exam Constitutional: WD/WN, vitals as above Eyes: PERRL, conjunctivae normal, anicteric sclerae ENMT: external ear and nose normal, oropharynx normal Neck: trachea midline, no thyromegaly Respiratory: normal respiratory effort; no labored breathing Auscultation: + diminished lung sounds (throughout\\) and + wheezes (faint exp wheezes bilat); no crackles and no rhonchi Cardiovascular: RRR, no murmur, no edema Gastrointestinal (Abdomen): normal bowel sounds, soft, nontender, no hepatosplenomegaly Musculoskeletal: Extremities: extremities normal to inspection; no cyanosis and no clubbing Skin: no rashes, warm and dry Neurologic: moves all extremities and awake; no focal motor deficits Psychiatric: A+Ox3, euthymic affect Results & Data Vital Signs (Past 12 Hours) Vital Signs Temp Pulse Pulse Pulse Pulse Pulse Pulse 03/11/19 11:40 37.0 C 52 L 03/11/19 11:32 63 03/11/19 11:30 59 L 72 71 71 03/11/19 08:00 60 03/11/19 06:57 86 03/11/19 06:52 36.9 C 64 03/11/19 04:30 57 L 03/11/19 04:08 36.8 C 56 L Pulse Pulse Resp Resp Resp Resp Resp 03/11/19 11:40 20 03/11/19 11:32 20 03/11/19 11:30 70 63 20 20 20 18 03/11/19 08:00 03/11/19 06:57 16 03/11/19 06:52 18 03/11/19 04:30 19 03/11/19 04:08 16 Resp BP Pulse Ox Pulse Ox Pulse Ox Pulse Ox Pulse Ox 03/11/19 11:40 143/78 H 89 L 03/11/19 11:32 89 L 03/11/19 11:30 18 90 86 L 90 84 L 03/11/19 08:00 03/11/19 06:57 94 03/11/19 06:52 113/73 94 03/11/19 04:30 93 03/11/19 04:08 114/64 94 Pulse Ox Pulse Ox 03/11/19 11:40 03/11/19 11:32 03/11/19 11:30 89 L 84 L 03/11/19 08:00 03/11/19 06:57 03/11/19 06:52 03/11/19 04:30 03/11/19 04:08 Laboratory Results 03/11/19 03/11/19 03/11/19 Range/Units 11:35 07:23 06:25 WBC (4.8-10.8) K/uL RBC (4.7-6.1) M/uL Hgb (14.0-18.0) g/dL Hct (42-52) % MCV (80-100) fL MCH (25-34) pg MCHC (32-36) g/dL RDW Std Deviation (36.4-46.3) fL RDW Coeff of Conrad (11.5-14.5) % Plt Count (130-400) K/uL MPV (7.4-10.4) fL Immature Gran % (Auto) % Neut % (Auto) % Lymph % (Auto) % Dade % (Auto) % Eos % (Auto) % Baso % (Auto) % Immature Gran # (Auto) (0.00-0.02) K/uL Neut # (Auto) (1.4-6.5) K/uL Lymph # (Auto) (1.2-3.4) K/uL Dade # (Auto) (0.11-0.59) K/uL Eos # (Auto) (0-0.5) K/uL Baso # (Auto) (0-0.2) K/uL ABG pH 7.37 (7.35-7.45) ABG pCO2 66 H (35-46) mmHg ABG pO2 74 L (80-95) mm/Hg ABG HCO3 38 H (19-24) mmol/L ABG O2 Saturation 94.7 (90-95) % ABG Base Excess 9.3 H (-9-1.8) mEq/L Johny Test Pos (Pos) Barometric Pressure 732.4 mm/Hg Oxygen Given 4L Sodium (136-145) mmol/L Potassium (3.5-5.1) mmol/L Chloride (98-107) mmol/L Carbon Dioxide (21-32) mmol/L Anion Gap (3-11) BUN (7-18) mg/dl Creatinine (0.6-1.4) mg/dl Est Cr Clr Drug Dosing ml/min Est GFR ( Amer) Est GFR (Non-Af Amer) BUN/Creatinine Ratio (10-20) Glucose (70-99) mg/dl POC Glucose 279 H 187 H (70-99) Calcium (8.5-10.1) mg/dl 03/11/19 03/11/19 03/10/19 Range/Units 06:25 06:25 20:14 WBC 17.05 H (4.8-10.8) K/uL RBC 5.20 (4.7-6.1) M/uL Hgb 15.6 (14.0-18.0) g/dL Hct 49.8 (42-52) % MCV 95.8 (80-100) fL MCH 30.0 (25-34) pg MCHC 31.3 L (32-36) g/dL RDW Std Deviation 50.0 H (36.4-46.3) fL RDW Coeff of Conrad 14.3 (11.5-14.5) % Plt Count 179 (130-400) K/uL MPV 11.2 H (7.4-10.4) fL Immature Gran % (Auto) 0.2 % Neut % (Auto) 85.2 % Lymph % (Auto) 4.5 % Dade % (Auto) 10.1 % Eos % (Auto) 0.0 % Baso % (Auto) 0.0 % Immature Gran # (Auto) 0.04 H (0.00-0.02) K/uL Neut # (Auto) 14.52 H (1.4-6.5) K/uL Lymph # (Auto) 0.76 L (1.2-3.4) K/uL Dade # (Auto) 1.73 H (0.11-0.59) K/uL Eos # (Auto) 0.00 (0-0.5) K/uL Baso # (Auto) 0.00 (0-0.2) K/uL ABG pH (7.35-7.45) ABG pCO2 (35-46) mmHg ABG pO2 (80-95) mm/Hg ABG HCO3 (19-24) mmol/L ABG O2 Saturation (90-95) % ABG Base Excess (-9-1.8) mEq/L Johny Test (Pos) Barometric Pressure mm/Hg Oxygen Given Sodium 135 L (136-145) mmol/L Potassium 4.9 (3.5-5.1) mmol/L Chloride 94 L (98-107) mmol/L Carbon Dioxide 38 H (21-32) mmol/L Anion Gap 2.0 L (3-11) BUN 45 H (7-18) mg/dl Creatinine 1.27 (0.6-1.4) mg/dl Est Cr Clr Drug Dosing 72.8 ml/min Est GFR ( Amer) 65.4 Est GFR (Non-Af Amer) 56.5 BUN/Creatinine Ratio 35.7 H (10-20) Glucose 205 H (70-99) mg/dl POC Glucose 277 H (70-99) Calcium 8.4 L (8.5-10.1) mg/dl 03/10/19 Range/Units 16:24 WBC (4.8-10.8) K/uL RBC (4.7-6.1) M/uL Hgb (14.0-18.0) g/dL Hct (42-52) % MCV (80-100) fL MCH (25-34) pg MCHC (32-36) g/dL RDW Std Deviation (36.4-46.3) fL RDW Coeff of Conrad (11.5-14.5) % Plt Count (130-400) K/uL MPV (7.4-10.4) fL Immature Gran % (Auto) % Neut % (Auto) % Lymph % (Auto) % Dade % (Auto) % Eos % (Auto) % Baso % (Auto) % Immature Gran # (Auto) (0.00-0.02) K/uL Neut # (Auto) (1.4-6.5) K/uL Lymph # (Auto) (1.2-3.4) K/uL Dade # (Auto) (0.11-0.59) K/uL Eos # (Auto) (0-0.5) K/uL Baso # (Auto) (0-0.2) K/uL ABG pH (7.35-7.45) ABG pCO2 (35-46) mmHg ABG pO2 (80-95) mm/Hg ABG HCO3 (19-24) mmol/L ABG O2 Saturation (90-95) % ABG Base Excess (-9-1.8) mEq/L Johny Test (Pos) Barometric Pressure mm/Hg Oxygen Given Sodium (136-145) mmol/L Potassium (3.5-5.1) mmol/L Chloride (98-107) mmol/L Carbon Dioxide (21-32) mmol/L Anion Gap (3-11) BUN (7-18) mg/dl Creatinine (0.6-1.4) mg/dl Est Cr Clr Drug Dosing ml/min Est GFR ( Amer) Est GFR (Non-Af Amer) BUN/Creatinine Ratio (10-20) Glucose (70-99) mg/dl POC Glucose 277 H (70-99) Calcium (8.5-10.1) mg/dl PG Care Time/CCT Total # of Minutes Spent Total Time Spent with Patient: Total time spent is greater than 50% in coordination of care (as documented) at patient's floor/unit and/or counseling patient: (1) Respiratory failure with hypoxia and hypercapnia Chronicity: unspecified Qualified Code(s): J96.91 - Respiratory failure, unspecified with hypoxia; J96.92 - Respiratory failure, unspecified with hypercapnia
[2019-03-11] MEDS: AZITHROMYCIN 250 MG TAB PO SCH (21:56)
[2019-03-11] MEDS: ATORVASTATIN 40 MG TAB PO SCH (21:57)
[2019-03-12] MEDS: ALBUT/IPRATROP 3MG/0.5MG NEB 3 ML VIAL NEB SCH ×2 (07:12→11:13)
[2019-03-12] MEDS: FLUTICASONE/SALMETEROL 250/50 (ADVAIR) 14 PUFF/1 INHALER INH SCH (09:48)
[2019-03-12] MEDS: SOTALOL HCL 80 MG TAB PO SCH (09:48)
[2019-03-12] MEDS: predniSONE 50 MG TAB PO SCH (09:48)
[2019-03-12] MEDS: FUROSEMIDE 40 MG TAB PO SCH (09:48)
[2019-03-12] MEDS: RIVAROXABAN 20 MG TAB PO SCH (09:48)
[2019-03-12] MEDS: NICOTINE 21 MG/24 HR TDSY TD SCH (09:49)
[2019-03-12] MEDS: ASPIRIN 81 MG ECTAB PO SCH (09:49)
[2019-03-12] MEDS: TIOTROPIUM BROMIDE 5 PUFF/90 MCG INH INH SCH (09:50)
[2019-03-12] MEDS: INSULIN ASPART 100 UNITS/ML 3 ML PEN SC SCH ×2 (09:53→12:36)
[2019-03-12 10:29] LABS: Basophils # (auto) 0.01 K/uL (0-0.2); Basophils % (auto) 0.1 %; Eosinophils # (auto) 0.13 K/uL (0-0.5); Eosinophils % (auto) 0.9 %; Hematocrit (blood only) 50.1 % (42-52); Hemoglobin 15.9 g/dL (14.0-18.0); Immature Granulocytes # (auto) 0.05 K/uL (0.00-0.02); Immature Granulocytes % (auto) 0.4 %; Lymphocytes # (auto) 1.73 K/uL (1.2-3.4); Lymphocytes % (auto) 12.2 %; Mean Corpuscular Hgb Conc 31.7 g/dL (32-36); Mean Corpuscular Volume 94.4 fL (80-100); Mean Platelet Volume 11.3 fL (7.4-10.4); Monocytes # (auto) 1.82 K/uL (0.11-0.59); Monocytes % (auto) 12.9 %; Neutrophils # (auto) 10.42 K/uL (1.4-6.5); Neutrophils % (auto) 73.5 %; Platelet Count 147 K/uL (130-400); RDW Coefficient of Variation 14.3 % (11.5-14.5); Red Blood Count 5.31 M/uL (4.7-6.1); White Blood Count 14.16 K/uL (4.8-10.8)
[2019-03-12] MEDS: ATENOLOL 25 MG TABLET PO SCH (10:30)
[2019-03-12 10:53] LABS: BUN Creatinine Ratio 30.3 (10-20); Calcium 8.4 mg/dl (8.5-10.1); Creatinine Clr Calc Pharmacy 80.4 ml/min; Est GFR (African American) 73.8; Est GFR (Non-African American) 63.7; Potassium 4.4 mmol/L (3.5-5.1)
--- NOTE | 2019-03-12 11:19 | Discharge Summary ---
Date of Service March 12, 2019 Admission HPI Per Admitting Provider 73 y/o M Hx CHF, CAD, COPD, PAF, HTN, HLD, DM II, obese, smoker. Presents from his cardiologists office where he was being assessed for shortness of breath. He was notably hypoxic and tachypneic and was redirected to the ER therefore. He denies CP a productive cough or fevers. On arrival to the ER a VBG demonstrated hypercarbic respiratory failure. Additional labs are notable for renal insufficiency which may be chronic, polycythemia and an elevated troponin. He was sent for a CTA of the chest which was essentially negative for acute findings. He responded well to nebulizers, steroids and 02. He did however become hypotensive while in the ER, likely owing to hypovolemia/dehydration. The hypotension then resolved with a fluid bolus. PMH: 1) CHF - unspecified 2) CAD - [place] 2014 - no stents 3) COPD 4) HTN 5) HLD 6) Obese 7) PAF - Xarelto 8) DM II Surgical: No surgical history Social: Smokes one pack daily, does not drink, retired from manual labor. Family: Noncontributory Principal Diagnosis COPD exacerbation, acute hypoxic and hypercapnic respiratory failure Discharge Exam Constitutional WD/WN, vitals as above Eyes PERRL, conjunctivae normal, anicteric sclerae ENMT external ear and nose normal, oropharynx normal Neck trachea midline, no thyromegaly Respiratory normal respiratory effort; no labored breathing Auscultation: + diminished lung sounds (throughout\\); no crackles, no rhonchi and no wheezes Cardiovascular RRR, no murmur, no edema Gastrointestinal (Abdomen) normal bowel sounds, soft, nontender, no hepatosplenomegaly Musculoskeletal Extremities: extremities normal to inspection; no cyanosis and no clubbing Skin no rashes, warm and dry Neurologic moves all extremities and awake; no focal motor deficits Psychiatric A+Ox3, euthymic affect Discharge Data Allergies Allergy/AdvReac Type Severity Reaction Status Date / Time No Known Allergies Allergy Unverified 03/07/19 17:00 Consultations 03/07/19 16:25 ED Decision to Admit Stat 03/08/19 10:03 Consult Cardiology Routine 03/09/19 10:19 Consult Pulmonology Routine 03/10/19 13:38 Consult Case Management - Discharge Planning Routine Procedures Performed Echocardiogram Ordered Studies 03/07/19 16:26 CT angio chest PE protocol Stat Chest x-ray Hospital Course (1) Respiratory failure with hypoxia and hypercapnia: He likely has chronic hypoxia and chronic hypercapnia, currently with acute on chronic failure patient is always short of breath prior to admission, presented with CO2 in the 70's with pH 7.3 likely has chronic CO2 level in the 60's His pulse ox has been acceptable in the low to mid 90s on 3 L nasal cannula at rest and needs 6 L nasal cannula with exertion as per official respiratory therapy 6-minute walk test Pulm following, appreciate his recommendations Recommended trilogy ventilator at home for patient, this is being delivered to his home today He will need pulmonary follow-up which has been arranged as well Due to chronic respiratory failure consequent to COPD, patient now requires a Non-Invasive Home Ventilator. Bi-level therapy with and without a rate would be ineffective, as patient requires a volume targeted mode. Ventilation is required to decrease the work of breathing and improve pulmonary status. Interruption of ventilator support would lead to decline of health status. Stable for discharge to home today (2) Heart failure with preserved ejection fraction: edema in legs is much improved from previous continue Lasix 40mg PO BID, this was his home dose echo 03/08 showed grade I diastolic dysfunction, normal EF likely has some degree of pulmonary HTN given long standing lung disease no evidence of acute heart failure at this time (3) Exertional angina: admits to chest pain and pressure on exertion improves with rest likely with CAD given his h/o smoking and diabetes troponin elevated but all consistent at 0.4 and 0.5 would not consider this an NSTEMI as he has no active chest pain consult cardiology appreciated no wall motion changes seen on echo discussed with Dr. Sandoval, no plans for further cardiac testing while here -He should follow-up with outpatient cardiology after discharge (4) COPD exacerbation: Received IV Solu Medrol 40 q6 and then changed to Prednisone 50mg daily on 03/11 would plan for prolonged taper on discharge over the next 2 weeks-he will taper down by 10 mg every 3 days until gone continue with Duoneb twice daily standing dose with every 6 hours as needed dose in between Completed a course of azithromycin if no further antibiotics needed He was started on maintenance therapy with Advair and Spiriva Case management also arrange for him to have a home nebulizer He will follow-up with pulmonary as an outpatient and needs PFTs (5) Anxiety: both anxious and angry, very abrasive, threatening at times throughout hospital stay which improved by the day of discharge hates being in the hospital, displays a general mistrust of everyone here feels like he is being "scammed" wants to leave the hospital AMA but was able to be talked down by family Low-dose Ativan was used periodically as needed (6) Hyperkalemia: Resolved with restarting lasix -continue Lasix 40mg BID (7) Hypertension: BP stable continue home regimen with Atenolol Lasix resumed (8) Diabetes: diabetic diet and Novolog SS hyperglycemia with the steroids His hemoglobin A1c is very well controlled at 7.1% here Receive sliding scale insulin during inpatient stay Patient can restart his acarbose and glipizide upon discharge-expect the hyperglycemia to improve as the steroids taper down -The patient did say he would be willing to start insulin if needed, but I feel this would be overwhelming at this time and may not be necessary -Follow-up with PCP after discharge (9) Atrial fibrillation: sinus rhythm on the monitor throughout his stay continue on Sotalol for rhythm control and Atenolol for rate control anticoagulated on Xarelto -Follow-up as an outpatient with cardiology routinely (10) CKD (chronic kidney disease), stage III: Cr is stable between 1.3 and 1.6 but was down to 1.15 on the day of discharge -follow BMP team as an outpatient -Avoid nephrotoxins -Renally dose medications -Remains on ramipril for renal protection (11) Encounter for smoking cessation counseling: patient has been smoking since age 12 He now says that he is determined to quit smoking upon return home -Continue nicotine patch (12) HLD (hyperlipidemia): continue statin therapy (13) DVT prophylaxis: on Xarelto Plan: Oxygen was delivered to the hospital and to his home. The trilogy ventilator machine is also been delivered to his home this afternoon. He is stable for discharge home at this time Total Time Total Time Spent Total Time Spent (In Minutes): Greater than 30 minutes Total Time Includes: Examination of the Patient, Discharge Planning and Medication Reconciliation Discharge Plan Discharge Items Patient Disposition: Home - Home Health Services Reason For Visit: COPD EXACERBATION-ELEVATED TROP Discharge Diagnosis: COPD exacerbation, acute hypercapnic and hypoxic respiratory failure Condition: Fair Discharge Goals: Diagnostic testing, Improve disease control, Learn about illness and Therapeutic intervention Activity: As commented below Lifting: Gradually increase as tolerated Bathing: No limitations Exercise/Sports: Gradually increase as tolerated Non-emergency contact: Primary Care Provider and Tapping Machine Operator Automatic Call non-emergency contact if: you have any medication questions and your symptoms worsen Follow-up/Referrals: Adelia Daley CRNP [Nurse Practitioner] - 03/19/19 11:15 am (Please, follow up at [facility] Pulmonology Office with Adelia SAUCEDA on MondayMarch 19 at 11:15 am. *The office is located in [address] of [facility]. This is the big building located next to this hospital. If you need to change this appointment, call the office at [phone].) Bill Romero PA-C [Primary Care Provider] - 03/15/19 3:00 pm (Please, follow up with Bill Romero PA-C on MondayMarch 15 at 3:00 pm. *If you need to change this appointment, call the office at [phone].) Diet: Carb Consistent or DM2 and Heart Healthy Addtl Provider Instructions: Please continue to wear oxygen at 3 L via nasal cannula at rest and turn it up to 6 L via nasal cannula with any activity/walking around. Please wear your trilogy ventilator mask with naps and all night long with sleep. You can also put the ventilator mask on if you are feeling short of breath or if your family notices changes in your mental status. Please follow-up with the adhesive bandage machine operator and your primary care provider as scheduled for you. Please finish out the course of prednisone as prescribed. Prescriptions: New ipratropium-albuterol 0.5 mg-3 mg(2.5 mg base)/3 mL Solution For Nebulization 3 ml NEB BID Qty: 180 RF: 0 nicotine [Nicoderm CQ] 21 mg/24 hr Patch 24 Hour 21 mg transdermal QAM Qty: 14 RF: 0 Spiriva with HandiHaler 18 mcg Capsule, W/Inhalation Device 1 cap inhalation QAM Qty: 30 RF: 0 prednisone 10 mg tablet 50 mg PO DAILY Qty: 40 RF: 0 fluticasone propion-salmeterol [Advair Diskus] 250-50 mcg/dose Blister With Device 1 puffs inhalation BID Qty: 60 RF: 0 Continued furosemide 40 mg tablet 40 mg PO BID RF: 0 atorvastatin 40 mg tablet 40 mg PO HS RF: 0 sotalol 80 mg tablet 160 mg PO BID RF: 0 glipizide 10 mg tablet 10 mg PO BID RF: 0 acarbose 50 mg tablet 50 mg PO TID RF: 0 atenolol 25 mg tablet 12.5 mg PO DAILY RF: 0 aspirin [Aspirin Low Dose] 81 mg Tablet,Delayed Release (Dr/Ec) 81 mg PO DAILY RF: 0 spironolactone 25 mg tablet 25 mg PO DAILY RF: 0 cinnamon bark [Cinnamon] 500 mg Capsule 1,000 mg PO DAILY RF: 0 Xarelto 20 mg tablet 20 mg PO DAILY RF: 0 ramipril 5 mg capsule 5 mg PO BID RF: 0 Stand-Alone Forms: [facility]/Other Patient Handouts: Hyperglycemia, Hypoglycemia, Diabetes Type 2 Coping Discharge Orders: Discharge Order (Routine); Ordered 03/12/19 Ordered By: Evangelina Rascon Admission Data Admit Date/Time: 03/07/19 17:53 Attending Provider: Evangelina Rascon Admit Provider: Mian Grace Primary Care Provider: Bill Romero Other Providers: Mian Grace ; Ritesh Sandoval ; Julian Edwards Service: Telemetry Other Pending Studies at Discharge: No
== END 2019-03-12 13:20 | disposition home health service (06) | DRG 190 ==
LOC: ED 14:45 → SUATTDRO 17:53 → 2S 17:53